=== PATIENT | male | born 1960 | race Caucasian/White ===

== ENCOUNTER → 2024-03-20 06:26 | Day surgery (SDC) | payer BC, SELFPAY | LOC: GI 06:26 | PROVIDERS: ATTENDING PHYSICIAN Internal Medicine | DX: R10.13 Epigastric pain (principal); R14.0 Abdominal distension (gaseous); K44.9 Diaphragmatic hernia without obstruction or gangrene; K20.90 Esophagitis, unspecified without bleeding; K22.89 Other specified disease of esophagus; K31.89 Other diseases of stomach and duodenum | CPT/HCPCS: 43239; 88305; 88342 ==

== ENCOUNTER → 2024-04-22 10:22 | Outpatient (REF) | payer BC, SELFPAY | LOC: RAD 10:22 | PROVIDERS: ATTENDING PHYSICIAN Internal Medicine | DX: J98.8 Other specified respiratory disorders (principal) | CPT/HCPCS: 71046 ==

== ENCOUNTER → 2024-05-06 07:28 | Outpatient (REF) | payer BC, SELFPAY | LOC: RAD 07:28 | PROVIDERS: ATTENDING PHYSICIAN Internal Medicine | DX: J18.9 Pneumonia, unspecified organism (principal) | CPT/HCPCS: 71046 ==

== ENCOUNTER → 2024-05-21 14:01 | Outpatient (REF) | payer BC, SELFPAY | LOC: RAD 14:01 | PROVIDERS: ATTENDING PHYSICIAN Internal Medicine | DX: R05.3 Chronic cough (principal) | CPT/HCPCS: 71046 ==

== ENCOUNTER → 2024-08-06 12:29 | Outpatient (REF) | payer BC, SELFPAY | LOC: RAD 12:29 | PROVIDERS: ATTENDING PHYSICIAN Nurse Practitioner Family; FAMILY PHYSICIAN Internal Medicine | DX: J06.9 Acute upper respiratory infection, unspecified (principal) | CPT/HCPCS: 71046 ==

== ENCOUNTER 2024-08-10 18:57 | Inpatient (IN) | payer BC, SELFPAY ==
[2024-08-10] VITALS (7 sets, daily range): BP systolic 109–136; BP diastolic 59–74; BMI 28.9; BMI 28.2
[2024-08-10] MEDS: TYLENOL 1000 MG PO (16:18)
--- NOTE | 2024-08-10 16:24 | ED.GENMED ---
History of Present Illness
General
Chief Complaint: Cough
Source: patient and spouse
Exam Limitations: none
Time Seen by Provider: 08/10/24 15:13
Nursing documentation reviewed up to this point in time: agreed with
History of Present Illness
History of Present Illness:
Patient is a 64-year-old male presenting to the emergency department with persistent cough and low-grade fever. Patient states that he has had a somewhat chronic cough over the past 6 months since an endoscopy procedure. However�over the past few
days cough has become productive with yellow/green sputum and he had a low-grade temp of 100.1 F yesterday. Patient states that he does have some pain in his chest when he is coughing only. No exertional or pleuritic component to pain
Patient denies any hemoptysis, shortness of breath, back pain. Patient denies any recent travel or recent surgeries. No lower leg pain or swelling. No personal or family history of blood clots.
Patient has seen his primary and ENT since initial onset of cough. It was thought to have been a component of GERD. He did also have an episode of pneumonia back in April.
Review of Systems
Review of Systems
Allergies reviewed?: Yes
All Other Systems: ROS reviewed and negative except as documented in HPI and ROS
Phy Exam
Physical Exam
Physical Exam:
Vitals: Hypoxic with oxygen saturation 88 on room air. Temp of 100.7 F. Otherwise vital signs stable.
General: Patient is coughing frequently.
Skin: Warm and dry, no rashes or lesions
Head: Normocephalic, atraumatic
Eyes: Sclera nonicteric. EOMs intact. No nystagmus.
Throat: Protecting airway
Neck: Normal ROM, no cervical spine tenderness, no meningismus. No JVD
Cardiac: Regular rate and rhythm, no murmurs.
Pulm: O2 saturation 88 on room air. Frequent coughing. Scattered rhonchi.
Abdomen: Abdomen soft. No abdominal tenderness.
Extremities: No evidence of cyanosis or edema. Palpable distal pulses
Neuro: AAOx3. Grossly intact.
Psychiatric: Normal affect.
Course
Orders/Labs/Results
Orders:
Orders
08/10/24 15:44
CR Chest - 2 Views Urgent
Comment:
Reason For Exam: productive cough, fever, hypoxia
08/10/24 16:15
Acetaminophen [Tylenol] 1,000 mg PO NOW STA
08/10/24 16:24
COVID-19 Antigen Urgent
Source: Nasal Swab
Complete Blood Count/With Diff Urgent
Comprehensive Metabolic Panel Urgent
Magnesium Urgent
Comment: ADD ON
Phosphorus Urgent
Comment: ADD ON
Influenza A+B Rapid Molecular Urgent
[place] Source: Nasal Swab
Specimen Description:
08/10/24 16:25
Respiratory Syncytial Virus Urgent
[place] Source: Nasal Swab
Specimen Description:
Date Specimen was Collected: 08/10/24
Time Specimen was Collected: 16:24
08/10/24 16:40
Azithromycin 500 mg/250 ml [Zithromax Infusion] 500 mg in 250 ml IV NOW
CefTRIAXone [Rocephin] 1,000 mg IV NOW STA
08/10/24 18:22
Lactate Level [Lactic Acid] Urgent
08/10/24 18:24
Add On- LAB Routine
Tests Added?: magnesium, phosphorous
0.9% Sodium Chloride 500 ml [Nss] 500 ml IV BOLUS
08/10/24 18:25
Admit/Transfer Patient As Directed
Co-Sign Provider:
Level of Care: Inpatient admission
Assign to:: Telemetry
Physician / Group: Yari Mack
Diagnosis: community acquired pneumonia
Reason for Telemetry: Chest Pain syndromes
Date to Stop Telemetry: 08/12/24
Time to Stop Telemetry: 11:00
Reason for Hospitalization: sepsis 2/2 community acquired pneumonia
Expected length of stay greater than two midnights?: Yes
ELOS- Estimated Length of Stay in days: 3
I certify the patient meets the requirements for IP care: Yes
PRN Pain Medication Management As Directed
May give lesser potent ordered pain med per pt: Yes
preference::
Protocol:: Medication orders for pain may be administered in a
manner that supports deferring to patient preference
when the pt is:
- Requesting an ordered lesser potent pain medication.
Least to most potent pain medications are defined
as: acetaminophen < NSAID < tramadol < opioids
(morphine, oxycodone, hydromorphone).
- Requesting a lesser dose of the same medication IF
ORDERED.
- Requesting a less intrusive route of administration
if both routes are prescribed by the provider (PO <
IV).
08/10/24 18:28
Code Status As Directed
Resuscitation Status: Full Code
08/10/24 18:[address] Non Medication Order As Directed
Physician Order: please TT me when lactate results (or TT overnight provider if after 7PM). If > 2 will need
to trend. He is already ordered for bolus now.
08/12/24 11:00
DC Protocol for Telemetry ONCE
Abnormal Lab Results
08/10/24
16:24
WBC 12.0 H 10^3/uL
(4.8-10.8)
MCV 95.0 H fL
(80.0-94.0)
MCH 31.1 H pg
(27.0-31.0)
MCHC 32.7 L g/dL
(33.0-37.0)
Absolute Neuts (auto) 8.4 H 10^3/uL
(1.4-6.5)
Absolute Monos (auto) 1.0 H 10^3/uL
(0.1-0.6)
Lymphocytes % 20.4 L %
(20.5-51.1)
Carbon Dioxide 20 L mmol/L
(22-30)
08/10/24 16:24
08/10/24 16:24
Vital Signs
Temp: 100.7 F
Initial and Last Documented VS:
Initial Vital Signs
Temp Pulse Resp BP Pulse Ox
97.6 F 73 20 109/65 92
08/10/24 14:05 08/10/24 14:05 08/10/24 14:05 08/10/24 14:05 08/10/24 14:05
Last Documented Vital Signs
Temp Pulse Resp BP Pulse Ox
100.7 F H 85 26 122/64 93
08/10/24 16:32 08/10/24 18:45 08/10/24 18:45 08/10/24 18:30 08/10/24 18:45
MDM/Problems Addressed
Differential Diagnosis Includes:
Not limited to: Pneumonia, bronchitis, pulmonary embolism, GERD, COPD, asthma, etc.
MDM/Problems Addressed:
64-year-old male presenting with acute on chronic cough with productive sputum and low-grade fever worsening over the past few days. No shortness of breath. No hemoptysis. 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 Patient found to
be hypoxic on arrival to emergency department with oxygen saturation of 88 on room air. He was placed on 3 L nasal cannula and saturating in mid 90s. Afebrile in triage although by my assessment he did have a temp of 100.7 F. Otherwise his vital
signs are stable. Physical exam as above. Patient is coughing frequently with scattered rhonchi on lung auscultation. There is no wheezing. Heart regular rate and rhythm. Patient is perfusing well with palpable distal pulses. Given fever and
productive cough�high suspicion for infectious etiology including pneumonia, bronchitis. Other considerations include pulmonary embolism, COPD, etc. Will obtain basic labs, chest x-ray, viral swabs. Tylenol for fever.
Chronic conditions affecting care:
GERD, history of smoking
Acute Exacerbation and/or Progression of Chronic Illness:
N/A
*Radiology
Radiology exam reviewed: preliminary read by ED provider (Right lower lobe pneumonia) and radiology read reviewed (Right basilar pneumonia)
*Pulse Oximetry
Patient hypoxic: yes (88 on room air-placed on 4 L nasal)
*EKG
Interpreted by ED Provider?: NA
*Adjunct Spanish Instructor Interpretation
Rate: normal
Interpretation: normal
Heart Rate: 80
Rhythm: sinus
*Critical Care Note
Total Time (30-74mins, 75-104mins- exclusive of procedures): Not Applicable
Patient Management
Discussion with other providers: Hospitalist
Escalation/DeEscalation of care consider admission/obs:
Admit for oxygen supplementation and IV antibiotic
Update Note
Update Note:
Update: Labs reviewed. Mild leukocytosis of 12. Chemistry unremarkable. Viral swabs including COVID, influenza, and RSV are negative. Chest x-ray does show right lower lobe opacity consistent with pneumonia. Given patient's hypoxia and
supplemental oxygen requirement along with community-acquired pneumonia�will admit for IV antibiotics, supportive care. Patient started on IV Rocephin/azithromycin in emergency department. Patient accepted to hospitalist service in stable
condition.
ED Attending Note
-
Portions of this chart may have been created with voice recognition software.� Occasional wrong word or��sound alike� substitutions may have occurred due to the inherent limitations of voice recognition software.
Discharge Plan
Departure
Patient Disposition: Admit
Date of Disposition: 08/10/24
Time of Disposition: 17:01
Presentation/result/management discussed w/ accepting MD/DO: Hospitalist
Discharge Problem:
Community acquired pneumonia of right lower lobe of lung, Hypoxemia requiring supplemental oxygen
Prescriptions:
No Action
Amlodipine Besylate 5 mg
5 mg PO DAILY
Rx Instructions:
in PM
gabapentin 600 mg Tablet
600 mg PO DAILY
Rx Instructions:
in AM
clopidogrel 75 mg Tablet
75 mg PO DAILY
Rx Instructions:
in PM
pantoprazole 40 mg Tablet,Delayed Release (Dr/Ec)
40 mg PO DAILY
Rx Instructions:
in AM
rosuvastatin 10 mg Tablet
10 mg PO DAILY
Rx Instructions:
IN am
levothyroxine 125 mcg
125 mcg PO DAILY
Rx Instructions:
in AM
Referrals:
Fercho Adams I., DO [Family Provider] -
Discharge Date and Time
Print Language: LATVIAN
[2024-08-10 16:37] LABS: % Basophils 0.3 % (0-2); % Eosinophils 0.7 % (0-6); % Immature Granulocytes 0.3 % (0-0.5); % Lymphocytes 20.4 % (20.5-51.1); % Monocytes 8.3 % (1.7-9.3); Absolute Eosinophils 0.1 10^3/uL (0-0.7); Absolute Lymphocytes 2.5 10^3/uL (1.2-3.4); Absolute Neutrophils 8.4 10^3/uL (1.4-6.5); Hemoglobin 16.7 g/dL (13.0-18.0); Mean Corp Hgb Conc. 32.7 g/dL (33.0-37.0); Mean Corpuscular Hgb 31.1 pg (27.0-31.0); Mean Platelet Volume 9.2 fL (7.4-10.4); Nucleated Red Blood Cells % 0 % (-); Platelet Count 268 10^3/uL (130-400); Red Blood Cell Count 5.37 10^6/uL (4.70-6.10); Red Cell Dist. Width 12.3 % (11.5-14.5)
[2024-08-10 16:50] LABS: ALT (SGPT) 19 U/L (0-50); AST (SGOT) 28 U/L (17-59); Albumin 4.8 g/dl (3.5-5.0); Alkaline Phosphatase 58 U/L (38-126); Blood Urea Nitrogen 13 mg/dl (9-20); Calcium 9.4 mg/dl (8.4-10.2); Carbon Dioxide 20 mmol/L (22-30); Chloride 103 mmol/L (98-107); Estimated Creatinine Clearance 99 ml/min; Glucose 88 mg/dl (70-99); Potassium 4.4 mmol/L (3.5-5.1); Sodium 138 mmol/L (135-145); Total Protein 7.4 g/dl (6.3-8.2); eGFR > 60.00
[2024-08-10 16:55] LABS: COVID-19 Antigen Negative (Negative)
[2024-08-10] MEDS: ROCEPHIN 1000 MG IV (16:55)
[2024-08-10] MEDS: ZITHROMAX INFUSION 250 IV (16:55)
--- NOTE | 2024-08-10 17:55 | HPS.HSE ---
Addendum entered and electronically signed by Yari Mack MD 08/10/24 18:38:
Daily Alcohol Use
-educated on cessation oleg with frequent infections
-[facility] protocol ordered
Original Note:
Family Physician
-
Family Physician: Fercho Adams
Chief Complaint
-
cough and fever
History of Present Illness
Mr. John Jacome is a 64 yo man with hx GERD, HTN, current tobacco use (5-6 cigarettes/day), daily alcohol use presents to the ER with cough and fever.
He reports a chronic cough since March that is reported with a gag reflex. Last week his cough got worse and so he went to his PCP on Sunday and had an x-ray outpatient that was normal. He was prescribed cough medication. Over past two days he
started to develop fever at home and worsening cough and fatigue. No nausea or abdominal pain. No LE swelling. No new rash. No chest pain.
In March patient was diagnosed with pneumonia and had two rounds of antibiotics and one round of steroids. His pneumonia resolved but cough persisted. He tried Flonase for 2 days without relief and then stopped. He has not yet seen a
[employer].
Medical History
Past Medical History
Past Medical History: Reports GERD and HTN
Past Surgical History: Reports Other (hernia repair)
Social History
Tobacco: Smoker (5-6 cigarettes/day)
Alcohol: Daily (2-3 drinks/day)
Family History
Family History: Not pertinent
Allergies / Home Medications
Allergies reflects when Allergies were last updated in [employer].
Home Medications with original date entered in [employer]
Allergy/Medication List:
Allergies
Allergy/AdvReac Type Severity Reaction Status Date / Time
No Known Allergies Allergy Verified 08/10/24 14:12
Home Medications
Amlodipine Besylate 5 mg PO DAILY 08/10/24
clopidogrel 75 mg tablet 75 mg PO DAILY 08/10/24
gabapentin 600 mg tablet 600 mg PO DAILY 08/10/24
levothyroxine 125 mcg PO DAILY 08/10/24
pantoprazole 40 mg tablet,delayed release 40 mg PO DAILY 08/10/24
rosuvastatin 10 mg tablet 10 mg PO DAILY 08/10/24
Review of Systems
-
History Source: Patient
A 12 point ROS was completed and negative except as noted: Yes
Physical Exam
Vital Signs
Vital Signs
Temp Pulse Resp BP Pulse Ox
100.7 F H 94 25 136/74 91
08/10/24 16:32 08/10/24 17:16 08/10/24 17:16 08/10/24 16:00 08/10/24 17:16
Physical Exam
General: No Apparent Distress
HEENT: PERRLA
Respiratory: Other (cough on inspiration, no wheezing )
Cardiac: S1/S2 and Regular Rhythm
GI: Soft and Non Tender
Musculoskeletal: No Edema
Skin: Warm and Dry; No Rash
Neuro: AO x 3
Psych: Calm
Laboratory Results
-
08/10/24 16:24
08/10/24 16:24
Laboratory Results
Total Bilirubin 1.0 mg/dl (0.2-1.3) 08/10/24 16:24
AST 28 U/L (17-59) 08/10/24 16:24
ALT 19 U/L (0-50) 08/10/24 16:24
Alkaline Phosphatase 58 U/L (38-126) 08/10/24 16:24
Data Reviewed
-
Diagnostic Radiology: Report Reviewed by me
Lab Data: Labs Reviewed by me
Impression/Plan
-
Mr. John Jacome is a 64 yo man with hx GERD, HTN presents to the ER with cough and fever found to have CAP.
Triage VS: T 97.6 up to 100.7, P 73, RR 20, BP 109/65, SpO2 92%
LABS: WBC 12, Hg 16.7, PLT 268, Na 138, K+ 4.4, Cl 103, CO2 20, BUN 13, Cr 0.8, Glucose 88, T. Bili 1.0, AST 28, ALT 19, Alk Phos 58
Covid negative, Flu negative, RSV negative
CXR
IMPRESSION:
Right basilar pneumonia, new from prior.
Sepsis 2/2 Community Acquired Pneumonia
Acute Hypoxic Resp Insufficiency 2/2 Above - patient on 2L
-obtain lactate now
-admit to tele - can DC tele tomorrow based on O2 needs
-continue IV Ceftriaxone/Azithromycin
-IVF 1L
-no current wheezing on exam, frequent cough - start Duonebs standing and PRN
-Acapella, Mucinex
Daily Tobacco Use
-educated on cessation, denied need for nicotine patch
GERD
-daily Protonix
Chronic cough
-educated on tobacco cessation; may also be postnasal drip - encouraged to retry Flonase
Essential Hypertension
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
Hypothyroidism
-ENTRY LEVEL ADMINISTRATIVE ASSISTANT Synthroid
Hyperlipidemia
-Rosuvastatin
DVT PPx Lovenox
FULL CODE
[2024-08-10] MEDS: NSS 500 IV (18:29)
[2024-08-10 18:34] LABS: Magnesium 1.8 mg/dl (1.6-2.3); Phosphorus 3.4 mg/dl (2.5-4.5)
[2024-08-10 18:40] LABS: Lactic Acid 0.7 mmol/L (0.7-2.0)
[2024-08-10] MEDS: TYLENOL 650 MG PO (19:31)
[2024-08-10] MEDS: DUONEB 3 ML INH (21:22)
[2024-08-10] MEDS: NSS 1000 IV (22:14)
[2024-08-10] MEDS: MUCINEX 600 MG PO (22:15)
[2024-08-10] MEDS: PLAVIX 75 MG PO (22:17)
[2024-08-10] MEDS: THIAMINE INJECTION 200 MG IV (22:17)
[2024-08-10] MEDS: LOVENOX 40 MG SC (22:18)
[2024-08-10] MEDS: ULTRAM 25 MG PO (22:55)
[2024-08-11] MEDS: NAPROSYN 250 MG PO ×2 (01:27→18:24)
[2024-08-11 03:55] VITALS: BP 110/59
[2024-08-11] MEDS: SYNTHROID 125 MCG PO (06:12)
[2024-08-11] MEDS: DUONEB 3 ML INH ×4 (07:31→21:10)
[2024-08-11 07:35] VITALS: BP 113/56
[2024-08-11 08:25] LABS: % Basophils 0.2 % (0-2); % Eosinophils 0.5 % (0-6); % Immature Granulocytes 0.4 % (0-0.5); % Lymphocytes 16.7 % (20.5-51.1); % Monocytes 11.1 % (1.7-9.3); % Neutrophils 71.1 % (42.2-75.2); Absolute Eosinophils 0.1 10^3/uL (0-0.7); Absolute Lymphocytes 1.9 10^3/uL (1.2-3.4); Absolute Monocytes 1.2 10^3/uL (0.1-0.6); Absolute Neutrophils 7.9 10^3/uL (1.4-6.5); Hematocrit 41.8 % (39.0-52.0); Hemoglobin 14.1 g/dL (13.0-18.0); Mean Corp Hgb Conc. 33.7 g/dL (33.0-37.0); Mean Corpuscular Volume 94.8 fL (80.0-94.0); Mean Platelet Volume 9.8 fL (7.4-10.4); Nucleated Red Blood Cells % 0 % (-); Platelet Count 210 10^3/uL (130-400); Red Blood Cell Count 4.41 10^6/uL (4.70-6.10); Red Cell Dist. Width 12.2 % (11.5-14.5); White Blood Cell Count 11.2 10^3/uL (4.8-10.8)
[2024-08-11 08:57] LABS: Blood Urea Nitrogen 11 mg/dl (9-20); Calcium 8.2 mg/dl (8.4-10.2); Carbon Dioxide 22 mmol/L (22-30); Chloride 105 mmol/L (98-107); Estimated Creatinine Clearance 114 ml/min; Glucose 92 mg/dl (70-99); Magnesium 1.7 mg/dl (1.6-2.3); Potassium 3.9 mmol/L (3.5-5.1); Sodium 137 mmol/L (135-145); eGFR > 60.00
[2024-08-11] MEDS: NEURONTIN 600 MG PO (09:54)
[2024-08-11] MEDS: FLUSH (NSS) 1 FLUSH IV (09:55)
[2024-08-11] MEDS: MUCINEX 600 MG PO ×2 (09:55→19:38)
[2024-08-11] MEDS: THIAMINE INJECTION 200 MG IV ×2 (09:55→19:38)
[2024-08-11] MEDS: PROTONIX 40 MG PO (09:55)
[2024-08-11] MEDS: CRESTOR 10 MG PO (09:55)
[2024-08-11] MEDS: FOLVITE 1 MG PO (09:55)
[2024-08-11 11:31] VITALS: BP 109/64
--- NOTE | 2024-08-11 12:27 | W.PN.HOSP.TC ---
Today's Communication/Plan
-
IV abx
sputum sample
Bronchodilators
wean o2 as tolerated
Assessment / Plan
Assessment / Plan
Sepsis 2/2 Community Acquired Pneumonia-poa
Acute Hypoxic Resp failre 2/2 Above
-lactic acid wnl. Require as high as 5L-improving to 3L .
-continue IV Ceftriaxone/Azithromycin
-IVF 1L -DC IVF.
-start Duonebs standing and PRN
-Acapella, Mucinex
-If no improvement will need to consider CT chest
Daily Tobacco Use
-educated on cessation, denied need for nicotine patch
Daily Alcohol Use
-educated on cessation oleg with frequent infections
-[facility] protocol ordered
GERD
-daily Protonix
Chronic cough
-educated on tobacco cessation; may also be postnasal drip - encouraged to retry Flonase
Essential Hypertension
-MILL[employer] FIRST Amlodipine
Hypothyroidism
-MILL[employer] Synthroid
Hyperlipidemia
-Rosuvastatin
DVT PPx Lovenox
FULL CODE
Anticipated Discharge: 24 - 48 hours
Subjective/Interval History
-
Date of Service: August 11, 2024
Remains on oxygen
states improvement in breathing
smokes CIGAR daily
Objective Data
-
Labs:
Laboratory Results
08/11/24
07:22
WBC 11.2 H
Hgb 14.1
Hct 41.8
Plt Count 210 D
Sodium 137
Potassium 3.9
Chloride 105
Carbon Dioxide 22
BUN 11
Creatinine 0.7
Glucose 92
Calcium 8.2 L
Vital Signs:
Vital Signs
Temp Pulse Resp BP Pulse Ox
98.3 F 62 18 109/64 95
08/11/24 11:31 08/11/24 11:31 08/11/24 11:31 08/11/24 11:31 08/11/24 11:31
I&O
08/10/24 08/11/24 08/12/24
06:59 06:59 06:59
Intake Total 240 / 240
Output Total 600 / 600
Balance -360 / -360
Physical Exam
-
General: Well Developed and No Apparent Distress
HEENT: Normocephalic, Atraumatic, Moist Mucous Membranes and Oxygen
Respiratory: Wheezes
Cardiac: Regular Rhythm and S1/S2; Negative Murmur, Rub or Gallop
GI: Soft, Nontender, Nondistended and Normal Bowel Sounds; Negative Organomegaly
Rectal: Deferred by Provider
Musculoskeletal: No Clubbing, No Cyanosis and No Edema
Skin: Warm; Negative Rash
Neuro: Awake, Alert, Oriented, AO x 3 and Nonfocal/Grossly Intact
Psych: Calm
Data Reviewed
-
Total Time Spent with Patient (in minutes): 55
--- NOTE | 2024-08-11 13:55 | CM ---
JANAK met with John at bedside to complete IA. He lives with his in a split level home with 5 entry steps, 8 steps to the second level. 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
Plan: Discharge to home with no needs.
PCP: Dr. Milan
Pharmacy: [facility] [place]
[2024-08-11 15:20] VITALS: BP 109/64
--- NOTE | 2024-08-11 16:35 | PTCARENOTE ---
Pt AAO x3, TAYLOR well, ambulatory in room/to BR; rachel well. VSS. Telemetry:NSR. On nc 2 lpm- pulse ox 96%, pt with (+) slight PORTILLO; denies SOB; has occ loose, productive cough. Abd soft, rounded, rachel PO well. Voiding in BR without difficulty.
Resting in bed at present. Will continue to monitor.
[2024-08-11] MEDS: STERILE WATER FOR INJECTION 10 ML IV (16:45)
[2024-08-11] MEDS: ROCEPHIN 1000 MG IV (16:45)
[2024-08-11] MEDS: ZITHROMAX 500 MG PO (16:45)
[2024-08-11] MEDS: LOVENOX 40 MG SC (17:39)
[2024-08-11] MEDS: NORVASC 5 MG PO (17:41)
[2024-08-11] MEDS: PLAVIX 75 MG PO (17:43)
[2024-08-11] MEDS: TYLENOL 650 MG PO (17:55)
[2024-08-11 19:55] VITALS: BP 118/55
[2024-08-11 23:55] VITALS: BP 112/57
[2024-08-12 03:26] VITALS: BP 116/66
[2024-08-12] MEDS: SYNTHROID 125 MCG PO (06:15)
[2024-08-12] MEDS: DUONEB 3 ML INH ×4 (07:08→20:43)
[2024-08-12 07:50] VITALS: BP 119/70
[2024-08-12 08:12] LABS: % Basophils 0.3 % (0-2); % Eosinophils 2.3 % (0-6); % Immature Granulocytes 0.3 % (0-0.5); % Lymphocytes 22.2 % (20.5-51.1); % Neutrophils 62.9 % (42.2-75.2); Absolute Eosinophils 0.2 10^3/uL (0-0.7); Absolute Monocytes 1.1 10^3/uL (0.1-0.6); Absolute Neutrophils 5.6 10^3/uL (1.4-6.5); Hematocrit 43.3 % (39.0-52.0); Hemoglobin 14.5 g/dL (13.0-18.0); Mean Corp Hgb Conc. 33.5 g/dL (33.0-37.0); Mean Corpuscular Hgb 31.7 pg (27.0-31.0); Mean Corpuscular Volume 94.7 fL (80.0-94.0); Mean Platelet Volume 9.8 fL (7.4-10.4); Nucleated Red Blood Cells % 0 % (-); Platelet Count 262 10^3/uL (130-400); Red Blood Cell Count 4.57 10^6/uL (4.70-6.10); Red Cell Dist. Width 12.1 % (11.5-14.5)
[2024-08-12] MEDS: FOLVITE 1 MG PO (08:42)
[2024-08-12] MEDS: MUCINEX 600 MG PO ×2 (08:42→20:33)
[2024-08-12] MEDS: PROTONIX 40 MG PO (08:42)
[2024-08-12] MEDS: NEURONTIN 600 MG PO (08:42)
[2024-08-12] MEDS: CRESTOR 10 MG PO (08:42)
[2024-08-12] MEDS: THIAMINE INJECTION 200 MG IV ×2 (08:43→20:33)
[2024-08-12 08:45] LABS: Blood Urea Nitrogen 12 mg/dl (9-20); Calcium 8.5 mg/dl (8.4-10.2); Carbon Dioxide 24 mmol/L (22-30); Chloride 107 mmol/L (98-107); Estimated Creatinine Clearance 99 ml/min; Glucose 92 mg/dl (70-99); Potassium 4.1 mmol/L (3.5-5.1); Sodium 141 mmol/L (135-145); eGFR > 60.00
--- NOTE | 2024-08-12 09:17 | CON.PUL ---
Consultation
Consultation Request
Date/Time Consultation Requested: 08/12/24
Date/Time Consultation Performed: 08/12/24
Performing Provider: Louis
Reason for Consultation: PNA
Medical History
-
History of Present Illness:
Patient is a 64 year old M with hx GERD, HTN, current tobacco use (5-6 cigarettes/day), daily alcohol use presents to the ER with cough and fever. Cough, dry and chronic ongoing since March, worsening in the past week. In March patient was
diagnosed with pneumonia and had two rounds of antibiotics and one round of steroids. His pneumonia resolved but cough persisted. OP CXR reportedly normal. Over past two days he started to develop fever at home and worsening cough and fatigue.
Of note, he did undergo EGD on 03/20/24 with esophagitis. He feels his symptoms started within 24 hours of procedure.
In ER, was noted to have mild hypoxemia, O2 raven 89% placed on 2L NC. Tmax 100.7F on arrival. CXR showing R basilar infiltrate, new compared to prior films.
He was told in the past to see pulmonary but did not follow up.
Current smoker, up to 1/2-1PPD for 'most of his life >40 years' cut back to 5-6 cigs/day. No family history of lung disease.
Past Medical History
Past Medical History: Other (see list below)
Social History
Tobacco: Smoker
Alcohol: Daily
Drug: None
Family History
Family History: Reviewed & Not Pertinent
Allergies / Home Medications
Allergies
Allergy/AdvReac Type Severity Reaction Status Date / Time
No Known Allergies Allergy Verified 08/10/24 14:12
Home Medications
�Medication �Instructions �Recorded �Confirmed �Last Taken �Type
Amlodipine Besylate 5 mg PO QPM Blood Pressure 08/10/24 08/10/24 Unknown History
clopidogrel 75 mg tablet 75 mg PO QPM Blood Clot 08/10/24 08/10/24 Unknown History
Prevention/Tx
gabapentin 600 mg tablet 600 mg PO DAILY Pain 08/10/24 08/10/24 08/10/24 History
levothyroxine 125 mcg PO DAILY Thyroid 08/10/24 08/10/24 08/10/24 History
pantoprazole 40 mg tablet,delayed 40 mg PO DAILY Gastrointestinal 08/10/24 08/10/24 08/10/24 History
release Issue
rosuvastatin 10 mg tablet 10 mg PO DAILY High Cholesterol 08/10/24 08/10/24 08/10/24 History
Review of Systems
-
History Source: Patient
All other systems: Negative unless noted
Vitals / Labs / Diagnostic Testing
Vital Signs
Temp Pulse Resp BP Pulse Ox
98 F 66 20 119/70 96
08/12/24 07:50 08/12/24 07:50 08/12/24 07:50 08/12/24 07:50 08/12/24 07:50
Lab Data
08/12/24 07:26
08/12/24 07:26
Microbiology
08/11/24 09:50 Sputum Respiratory Culture - Final
08/11/24 09:50 Sputum Gram Stain - Final
08/10/24 16:24 Nasal Swab Influenza Types A & B (GELY) - Final
Negative for Influenza A & B, NAAT
Negative results must be combined with clinical observations
and patient history.
Nucleic Acid Amplification test (NAAT)performed on the
cuaQea platform.
08/10/24 16:25 Nasal Swab Respiratory Syncytial Virus Culture - Final
Negative for Respiratory Syncytial Virus.
A false negative result may be obtained with a specimen
collected early in the acute phase. If symptoms persist, a
new specimen should be tested.
Diagnostic Testing:
Physical Exam
-
HEENT: Normocephalic, Anicteric and Moist Mucous Membranes
Cardiovascular: S1/S2 and Regular Rhythm
Respiratory: Clear and Non-Labored Respirations
GI: Soft, Non Distended and Non Tender
Neurology: Awake, Alert, Oriented and No Motor Deficits
Skin: Warm, Dry and Good Color
General: Comfortable and Other (NAD)
Assessment
-
Patient is a 64 year old M with hx GERD, HTN, current tobacco use (5-6 cigarettes/day), daily alcohol use presents to the ER with cough and fever. Cough, dry and chronic ongoing since March, worsening in the past week. In March patient was
diagnosed with pneumonia and had two rounds of antibiotics and one round of steroids. His pneumonia resolved but cough persisted. OP CXR reportedly normal. Over past two days he started to develop fever at home and worsening cough and fatigue.
Of note, he did undergo EGD on 03/20/24 with esophagitis. In ER, was noted to have mild hypoxemia, O2 raven 89% placed on 2L NC. Tmax 100.7F on arrival. CXR showing R basilar infiltrate, new compared to prior films. We are consulted for eval
08/12/24.
Acute hypoxic respiratory insufficiency
R basilar infiltrate, likely CAP PNA vs aspiration
Progressive chronic cough complaints, since March
Leukocytosis, mild
Current smoker, 1/-1/2 PPD
Chronic ETOH use, daily
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
Dyspepsia s/p EGD 03/20/24-1 cm hiatal hernia. LA Grade A esophagitis with no bleeding. Erythematous mucosa in the gastric body and antrum.
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
History of colon polyps
Chronic ETOH abuse, 2 glasses of wine/daily
Overweight, BMI 28
Hernia repairs 2009, 2004
BPH
PVD s/p stent on Eliquis/ASA/Plavix
DJD
Chronic pain/migraines
HLD
Plan
Hypoxemia noted on arrival, O2 raven 89% placed on 2L NC
No oxygen use is noted at baseline at home
Home O2 evaluation, eventually
No prior history of lung disease is noted -- never had PFTs or symptoms prior to this
Current smoker, up to 1/2-1PPD for 'most of his life >40 years' cut back to 5-6 cigs/day.
No family history of lung disease. Never had LDCT screening
At risk for COPD, we discussed this today
Suspect patient has RLL PNA CAP vs Asp given recent procedure
He notes that he had colonoscopy year prior and did not have issues with anesthesia then
CXR obtained indicating consolidation which is new
Will obtain dedicated CT chest to evaluate for any other lung disease, never had screening
Will also obtain baseline PFT testing
Agree with IV abx, sputum culture prelim contaminated
Will repeat culture
We have discussed need for diag bronch if symptoms are not improving
No cardiac disease history, HTN meds on board
No prior ECHO available for review, can obtain baseline if hypoxemia not improving
Smoking history noted
Smoking cessation discussed, he has declined NRT
Will need outpatient pulmonary evaluation in our office for PFTs and 6MWT
Reviewed with patient and at bedside
Risk factors assessed for underlying sleep disordered breathing also noted, recommend outpatient PSG/sleep evaluation
We will follow
Diagnostic Data
Chest X-Ray: 08/10/24- Right basilar pneumonia, new from prior.
08/06/24-1. Clear lungs. 2. No significant change compared to prior study.
05/21/24- 1. Clear lungs. 2. Right lower lobe pneumonia seen on prior chest x-rays has resolved.
05/06/24- Stable probable mild right lower lobe infectious/inflammatory bronchiolitis.
04/22/24-There is airspace disease in the right lower lobe. This could be atelectasis versus pneumonia.
CT Scan:
Echo:
PFT's:
Reports and relevant images were personally reviewed.
Total time spent on this consultation __77__ includes review of history, physical exam, medications, laboratory data, personal review of imaging, extensive review of outpatient records, discussion with care team and respiratory therapy.
[2024-08-12 11:18] VITALS: BP 126/63
--- NOTE | 2024-08-12 12:07 | W.PN.HOSP.TC ---
Today's Communication/Plan
-
Continue with antibiotic
Wean O2 as tolerated
Continue with bronchodilators
CT chest
Pulm eval
Assessment / Plan
Assessment / Plan
Sepsis 2/2 Community Acquired Pneumonia-poa
Acute Hypoxic Resp failure 2/2 Above
-lactic acid wnl. Require as high as 5L-improving to 3L yesterday to 1L today.
-continue IV Ceftriaxone/Azithromycin
-IVF 1L -DC IVF.
-start Duonebs standing and PRN
-Acapella, Mucinex
-CT chest pending
-Pulm eval
Daily Tobacco Use
-educated on cessation, denied need for nicotine patch
Daily Alcohol Use
-educated on cessation oleg with frequent infections
-MSAS protocol ordered
GERD
-daily Protonix
Chronic cough
-educated on tobacco cessation; may also be postnasal drip - encouraged to retry Flonase
-Status post recent ENT evaluation and or endoscopy. ENT mention of silent reflux
-Pulm now also consulted.
Essential Hypertension
-DIRECTOR OF STRATEGY & MOBILE Amlodipine
Hypothyroidism
-DIRECTOR OF STRATEGY & MOBILE Synthroid
Hyperlipidemia
-Rosuvastatin
DVT PPx Lovenox
FULL CODE
d/w with spouse at bedside in details. All questions answered to her satisfaction.
Anticipated Discharge: Within 24 hours
Subjective/Interval History
-
Date of Service: August 12, 2024
states of dry cough
intermittent phelgm production
now on 1L oxygen
Objective Data
-
Labs:
Laboratory Results
08/12/24
07:26
WBC 9.0
Hgb 14.5
Hct 43.3
Plt Count 262 D
Sodium 141
Potassium 4.1
Chloride 107
Carbon Dioxide 24
BUN 12
Creatinine 0.8
Glucose 92
Calcium 8.5
Vital Signs:
Vital Signs
Temp Pulse Resp BP Pulse Ox
98.6 F 59 18 126/63 94
08/12/24 11:18 08/12/24 11:18 08/12/24 11:18 08/12/24 11:18 08/12/24 11:18
I&O
08/11/24 08/12/24 08/13/24
06:59 06:59 06:59
Intake Total 240 / 240 1750 / 1750
Output Total 600 / 600
Balance -360 / -360 1750 / 1750
Physical Exam
-
General: Well Developed and No Apparent Distress
HEENT: Normocephalic, Atraumatic, Moist Mucous Membranes and Oxygen
Respiratory: Decreased Breath Sounds (improving )
Cardiac: Regular Rhythm and S1/S2; Negative Murmur, Rub or Gallop
GI: Soft, Nontender, Nondistended and Normal Bowel Sounds; Negative Organomegaly
Rectal: Deferred by Provider
Musculoskeletal: No Clubbing, No Cyanosis and No Edema
Skin: Warm; Negative Rash
Neuro: Awake, Alert, Oriented, AO x 3 and Nonfocal/Grossly Intact
Psych: Calm
Data Reviewed
-
Total Time Spent with Patient (in minutes): 55
Labs: Labs Reviewed by me, Discussed with Patient and Discussed with Family
[2024-08-12] MEDS: ROCEPHIN 1000 MG IV (15:09)
[2024-08-12] MEDS: STERILE WATER FOR INJECTION 10 ML IV (15:10)
[2024-08-12] MEDS: ZITHROMAX 500 MG PO (15:10)
[2024-08-12 16:52] VITALS: BP 123/65
[2024-08-12] MEDS: PLAVIX 75 MG PO (17:30)
[2024-08-12] MEDS: NORVASC 5 MG PO (17:30)
[2024-08-12] MEDS: TYLENOL 650 MG PO ×2 (17:31→22:01)
[2024-08-12] MEDS: LOVENOX 40 MG SC (17:32)
[2024-08-12] MEDS: ROBITUSSIN AC 5 ML PO (18:39)
[2024-08-12 19:55] VITALS: BP 127/66
[2024-08-12 23:17] VITALS: BP 129/69
[2024-08-13 03:49] VITALS: BP 124/68
[2024-08-13] MEDS: ROBITUSSIN AC 5 ML PO ×2 (03:56→09:39)
[2024-08-13] MEDS: SYNTHROID 125 MCG PO (05:44)
[2024-08-13] MEDS: DUONEB 3 ML INH ×3 (07:16→15:08)
[2024-08-13 07:30] VITALS: BP 132/66
[2024-08-13] MEDS: PROTONIX 40 MG PO (08:43)
[2024-08-13] MEDS: MUCINEX 600 MG PO (08:43)
[2024-08-13] MEDS: CRESTOR 10 MG PO (08:43)
[2024-08-13] MEDS: FOLVITE 1 MG PO (08:43)
[2024-08-13] MEDS: NEURONTIN 600 MG PO (08:43)
[2024-08-13] MEDS: THIAMINE INJECTION 200 MG IV (08:44)
--- NOTE | 2024-08-13 09:40 | W.PN.PUL3 ---
Today's Communication / Plan
-
PFT reviewed, moderate COPD-will start inhalers to continue at discharge, COPD education
Home O2 eval
Smoking cessation, he has declined NRT
Continue abx for full course at home, sputum negative
BURT history, will be followed as OP
Ok for discharge planning today
We discussed his OP FU in significant detail
Assessment
-
Patient is a 64 year old M with hx GERD, HTN, current tobacco use (5-6 cigarettes/day), daily alcohol use presents to the ER with cough and fever. Cough, dry and chronic ongoing since March, worsening in the past week. In March patient was
diagnosed with pneumonia and had two rounds of antibiotics and one round of steroids. His pneumonia resolved but cough persisted. OP CXR reportedly normal. Over past two days he started to develop fever at home and worsening cough and fatigue.
Of note, he did undergo EGD on 03/20/24 with esophagitis. In ER, was noted to have mild hypoxemia, O2 raven 89% placed on 2L NC. Tmax 100.7F on arrival. CXR showing R basilar infiltrate, new compared to prior films. We are consulted for eval
08/12/24.
Acute hypoxic respiratory insufficiency
R basilar infiltrate, likely CAP PNA vs aspiration
Progressive chronic cough complaints, since March
Leukocytosis, mild
Current smoker, 1/4-1/2 PPD
Chronic ETOH use, daily
Moderate COPD
BURT not on CPAP
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
Dyspepsia s/p EGD 03/20/24-1 cm hiatal hernia. LA Grade A esophagitis with no bleeding. Erythematous mucosa in the gastric body and antrum.
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
History of colon polyps
Chronic ETOH abuse, 2 glasses of wine/daily
Overweight, BMI 28
Hernia repairs 2009, 2004
BPH
PVD s/p stent on Eliquis/ASA/Plavix
DJD
Chronic pain/migraines
HLD
Plan
Hypoxemia noted on arrival, O2 raven 89% placed on 2L NC
No oxygen use is noted at baseline at home
Home O2 evaluation
No prior history of lung disease is noted -- never had PFTs or symptoms prior to this
Current smoker, up to 1/2-1PPD for 'most of his life >40 years' cut back to 5-6 cigs/day.
No family history of lung disease. Never had LDCT screening
At risk for COPD, we discussed this today
Suspect patient has RLL PNA CAP vs Asp given recent procedure
He notes that he had colonoscopy year prior and did not have issues with anesthesia then
CXR obtained indicating consolidation which is new
Will obtain dedicated CT chest to evaluate for any other lung disease, never had screening
--CT showing normal lungs, PNA only, no other acute findings
Baseline PFT testing showing moderate obstruction c/w COPD
Will start symbicort/spiriva to take at home, continue
COPD education
This was reviewed with patient and
Agree with IV abx, sputum culture prelim contaminated
Will repeat culture--usual lu
Can complete PO course
No cardiac disease history, HTN meds on board
No prior ECHO available for review, can obtain baseline if hypoxemia not improving
Smoking history noted
Smoking cessation discussed, he has declined NRT
Will need outpatient pulmonary evaluation in our office for PFTs and 6MWT
Reviewed with patient and at bedside
Risk factors assessed for underlying sleep disordered breathing also noted, recommend outpatient PSG/sleep evaluation
He has had a sleep study and diagnosed with BURT, he has declined CPAP
We will review this at his OP visit
Discharge planning per team
Diagnostic Data
Chest X-Ray: 08/10/24- Right basilar pneumonia, new from prior.
08/06/24-1. Clear lungs. 2. No significant change compared to prior study.
05/21/24- 1. Clear lungs. 2. Right lower lobe pneumonia seen on prior chest x-rays has resolved.
05/06/24- Stable probable mild right lower lobe infectious/inflammatory bronchiolitis.
04/22/24-There is airspace disease in the right lower lobe. This could be atelectasis versus pneumonia.
CT Scan:
Echo:
PFT's:
Reports and relevant images were personally reviewed.
Total time spent on this encounter __54__ includes review of history, physical exam, medications, laboratory data, personal review of imaging, extensive review of outpatient records, discussion with care team and respiratory therapy.
Subjective Data
-
Date of Service:
Date of Service: August 13, 2024
Chief Complaint: Pulmonary Follow Up
Subjective:
Significantly better today, sitting in chair
Off O2, at bedside
Objective Data
Data Reviewed
Vital Signs / I&O / Oxygen:
Vital Signs
Temp Pulse Resp BP Pulse Ox
98.1 F 63 18 132/66 92
08/13/24 07:30 08/13/24 07:30 08/13/24 07:30 08/13/24 07:30 08/13/24 09:21
Intake and Output
08/12/24 08/13/24 08/14/24
06:59 06:59 06:59
Intake Total 1750 / 1750 1140 / 1140
Balance 1750 / 1750 1140 / 1140
SaO2 92
Nasal Cannula flow liters per 1
minute
Physical Exam
General: Comfortable and Other (NAD)
HEENT: Normocephalic, Anicteric and Moist Mucous Membranes
Cardiovascular: S1-S2 and Regular Rhythm
Respiratory: Crackles (minimal) and Non-Labored Respirations
GI: Soft, Non Distended and Non Tender
Neurology: Awake, Alert, Oriented and No Motor Deficits
Skin: Warm, Dry and Good Color
Labs/Micro/Reports
Lab Data
08/12/24 07:26
08/12/24 07:26
Microbiology
08/12/24 13:38 Sputum Gram Stain - Preliminary
08/11/24 09:50 Sputum Respiratory Culture - Final
08/11/24 09:50 Sputum Gram Stain - Final
08/10/24 16:24 Nasal Swab Influenza Types A & B (GELY) - Final
Negative for Influenza A & B, NAAT
Negative results must be combined with clinical observations
and patient history.
Nucleic Acid Amplification test (NAAT)performed on the
[employer] platform.
08/10/24 16:25 Nasal Swab Respiratory Syncytial Virus Culture - Final
Negative for Respiratory Syncytial Virus.
A false negative result may be obtained with a specimen
collected early in the acute phase. If symptoms persist, a
new specimen should be tested.
--- NOTE | 2024-08-13 11:20 | W.PN.HOSP.TC ---
Today's Communication/Plan
-
Pulmonary recs
Home O2 evaluation
P.o. antibiotics on discharge
Assessment / Plan
Assessment / Plan
Sepsis 2/2 Community Acquired Pneumonia-poa
Acute Hypoxic Resp failure 2/2 Above
-lactic acid wnl. Require as high as 5L-improving to 3L yesterday to 1L to room air. Home o2 eval ordered/pending
-continue IV Ceftriaxone/Azithromycin
-IVF 1L -DC IVF.
-start Duonebs standing and PRN
-Acapella, Mucinex
-CT chest resulted with right lower lobe opacification compatible with pneumonia. Mild left lower lobe opacification most likely represent subsegmental atelectasis. Pneumonia cannot be excluded. Few small scattered nonspecific subcentimeter
mediastinal lymph nodes. Will need to follow-up outpatient with pulmonary for mediastinal lymph nodes follow-up with repeat CAT scan most likely
-Pulm eval
Daily Tobacco Use
-educated on cessation, denied need for nicotine patch. High risk of developing COPD as with extensive history of smoking.
Daily Alcohol Use
-educated on cessation oleg with frequent infections
-MSAS protocol ordered and no withdrawal pack can be stopped.
GERD
-daily Protonix
Chronic cough
-educated on tobacco cessation; may also be postnasal drip - encouraged to retry Flonase
-Status post recent ENT evaluation and or endoscopy. ENT mention of silent reflux
-Pulm now also consulted.
Essential Hypertension
-REVERSER Amlodipine
Hypothyroidism
-REVERSER Synthroid
Hyperlipidemia
-Rosuvastatin
DVT PPx Lovenox
FULL CODE
d/w with spouse at bedside in details on 08/12 and 08/13 . All questions answered to her satisfaction.
Anticipated Discharge: Today
Subjective/Interval History
-
Date of Service: August 13, 2024
taken off o2 this am
remains with cough
tolerating diet
afebrile
Objective Data
-
Vital Signs:
Vital Signs
Temp Pulse Resp BP Pulse Ox
98.1 F 63 18 132/66 92
08/13/24 07:30 08/13/24 07:30 08/13/24 07:30 08/13/24 07:30 08/13/24 09:21
I&O
08/12/24 08/13/24 08/14/24
06:59 06:59 06:59
Intake Total 1750 / 1750 1140 / 1140
Balance 1750 / 1750 1140 / 1140
[2024-08-13 11:32] VITALS: BP 138/69
--- NOTE | 2024-08-13 13:31 | RESPNOTE ---
Respiratory: SpO2 on Room Air 93-94% HR 68. Patient walked 300 feet SpO2 91% HR 93. Tolerated well, patient states no SOB/PORTILLO.
[2024-08-13] MEDS: SPIRIVA RESPIMAT 2.5 MCG 2 PUFF INH (13:39)
[2024-08-13] MEDS: SYMBICORT 80/4.5 MCG INHALER 2 PUFF INH (13:39)
--- NOTE | 2024-08-13 14:04 | W.DCSUMMARY ---
Discharge Summary
Discharge Data
Date of Admission: 08/10/24
Date of Discharge: 08/13/24
-
Pending Results: No
Hospital Course
64-year-old male past medical history of daily tobacco abuse, daily alcohol usage, GERD, cough chronic, hypertension, hypothyroidism, hyperlipidemia, peripheral arterial disease status post stent left lower extremity is presenting from home with
severe cough and shortness of breath. Chest x-ray was performed with infiltrate. Patient was started on antibiotics. Patient was started on bronchodilators. Patient was eval by pulmonary and patient underwent CT chest. CT chest with
infiltration noted. Patient was also acute hypoxic respiratory insufficiency. Patient was able to be weaned off to room air. Patient did not qualify for home oxygenation. Patient O2 status remained stable. Patient underwent PFT which showed
patient with moderate COPD and patient was started on bronchodilators with Symbicort and Spiriva. Patient was recommended follow-up outpatient with pulmonary. Patient was recommended complete tobacco cessation and alcohol cessation.
Discharge Plan
-
Patient Disposition: Home (Routine Discharge)
Discharge Diagnosis/Procedures: Acute hypoxic respiratory insufficiency
Community-acquired pneumonia
Newly diagnosed COPD
Condition: Fair
Diet: As tolerated
Activity: As tolerated
Driving Restrictions: As prior to admission
Referrals:
Fercho Adams I. DO [Family Provider] - in less than 1 week
Mae Myers, [Active] - in three to four weeks (Had [employer] appt 09/29/24, can reschedule for hosp FU visit )
Prescriptions:
New
budesonide-formoterol [Symbicort] 80-4.5 mcg/actuation Hfa Aerosol Inhaler
2 puff inhalation R BID 30 Days Qty: 10.2 0RF
cefdinir 300 mg capsule
300 mg PO BID Qty: 6 0RF
azithromycin 500 mg tablet
500 mg PO DAILY 3 Days Qty: 3 0RF
Spiriva Respimat 2.5 mcg/actuation mist
2 inh inhalation DAILY 30 Days Qty: 4 0RF
Continued
Amlodipine Besylate 5 mg
5 mg PO QPM
Rx Instructions:
in PM
gabapentin 600 mg Tablet
600 mg PO DAILY
Rx Instructions:
in AM
clopidogrel 75 mg Tablet
75 mg PO QPM
Rx Instructions:
in PM
pantoprazole 40 mg Tablet,Delayed Release (Dr/Ec)
40 mg PO DAILY
Rx Instructions:
in AM
rosuvastatin 10 mg Tablet
10 mg PO DAILY
Rx Instructions:
IN am
levothyroxine 125 mcg
125 mcg PO DAILY
Rx Instructions:
in AM
Discharge Orders:
Discharge Patient (As Directed); Ordered 08/13/24
Ordered By: Anthony Bray
Discharge Date and Time
Discharge Date/Time: 08/13/24 15:48
Print Language: KITTITIAN
[2024-08-13 14:23] VITALS: BP 132/68
[2024-08-13] MEDS: STERILE WATER FOR INJECTION 10 ML IV (14:50)
[2024-08-13] MEDS: ZITHROMAX 500 MG PO (14:50)
[2024-08-13] MEDS: ROCEPHIN 1000 MG IV (14:50)
== END 2024-08-13 15:48 | disposition home or self-care (01) | DRG 871 ==
LOC: 4 EAST ACU 18:57
PROVIDERS: Physician Assistant; ADMITTING PHYSICIAN Student in an Organized Health Care Education/Training Program; ATTENDING PHYSICIAN Hospitalist; EMERGENCY PHYSICIAN Emergency Medicine; FAMILY PHYSICIAN Internal Medicine; OTHER PHYSICIAN Internal Medicine
DX: A41.9 Sepsis, unspecified organism (principal); J18.9 Pneumonia, unspecified organism; J96.01 Acute respiratory failure with hypoxia; J44.0 Chronic obstructive pulmonary disease with (acute) lower respiratory infection; I10 Essential (primary) hypertension; F17.210 Nicotine dependence, cigarettes, uncomplicated; K21.9 Gastro-esophageal reflux disease without esophagitis; E03.9 Hypothyroidism, unspecified; E78.5 Hyperlipidemia, unspecified; K21.00 Gastro-esophageal reflux disease with esophagitis, without bleeding; N40.0 Benign prostatic hyperplasia without lower urinary tract symptoms; G47.33 Obstructive sleep apnea (adult) (pediatric); G43.909 Migraine, unspecified, not intractable, without status migrainosus; I73.9 Peripheral vascular disease, unspecified; E66.3 Overweight; Z68.28 Body mass index [BMI] 28.0-28.9, adult; Z79.02 Long term (current) use of antithrombotics/antiplatelets; Z79.890 Hormone replacement therapy; Z79.899 Other long term (current) drug therapy; Z95.820 Peripheral vascular angioplasty status with implants and grafts; Z20.822 Contact with and (suspected) exposure to COVID-19
CPT/HCPCS: 94727; 94729; 71046; 71250; 80048; 80053; 83605; 83735; 84100; 85025; 87070; 87205; 87502; 87807; 87811; 88738; 94060; 94640; 96365; 96375; 99285; 99406

== ENCOUNTER 2024-08-24 17:32 | Inpatient (IN) | payer BC, SELFPAY ==
[2024-08-24] VITALS (14 sets, daily range): BP systolic 107–148; BP diastolic 67–79; BMI 28.3
--- NOTE | 2024-08-24 14:59 | ED.GENMED ---
History of Present Illness
General
Chief Complaint: DVT/Possible Blood Clot
Time Seen by Provider: 08/24/24 14:40
History of Present Illness
History of Present Illness:
Patient presents to the emergency department with left leg pain and paresthesias. He has a history of a left SFA stent and subsequent thrombectomy and restenting in 2021. He is on Plavix. Pain came on suddenly this morning
Phy Exam
Physical Exam
Physical Exam:
GENERAL APPEARANCE: NAD, well developed/ well nourished
EYES lids/conjunctiva normal
EARS/NOSE/THROAT Mucous membranes moist, uvula midline without oral pharyngeal erythema, exudate or swelling
HEAD/NECK normocephalic atraumatic, neck is supple.
RESPIRATORY respiratory effort normal, speaks in full sentences, no accessory muscle use. Lungs clear to auscultation without rhonchi, wheezes, rales
CARDIAC Regular rate and rhythm, no edema.
ABDOMINAL Soft, ND/NT. No pulsatile masses on exam, rebound tenderness, Villa sign or pain over Mcburney's point.
MUSCLES/EXTREMITIES right leg is normal. Left leg with palpable femoral pulses. Cool below the knee. Paleness noted to the left foot. There is no palpable DP or PT pulses. There is no dopplerable pulse 5 out of 5 strength. Sensation is intact
to light touch though patient notes paresthesias.
SKIN Warm, pink and dry. No rashes
NEUROLOGICAL Speech is clear and appropriate. Normal level of consciousness. 5/5 strength in all extremities.
PSYCH Normal mood and affect. Judgement/competence is appropriate
Course
Orders/Labs/Results
Orders:
Orders
08/24/24 14:52
Heparin 7,400 units IV NOW STA
Pulse Ox/cont/shift [RESP] Stat
Quantity: 1
08/24/24 14:53
Electrocardiogram (*1) Stat
Reason for Study: Other
Other Reason for Exam: chest pain
08/24/24 14:55
Notify MD As Directed
Notify physician if: Call provider for further orders if PTT is greater than or equal to 200 per heparin
infusion protocol.
Nursing to Place Non Medication Order As Directed
Physician Order: PTT 6 hours after initial start of Heparin infusion
Above order entered?: Yes
08/24/24 15:00
Heparin 44719 Units/250 ml 25,000 units in 250 ml IV PER PROTOCOL
Weight to be used for heparin protocol in kilograms (kg):: 92
Protocol:: DVT/PE
PTT Goal Range to be used:: PTT 73 to 111 seconds
Order type:: Initial
INITIAL Infusion Dose (UNITS/KG/hr) & then follow protocol:: 18 units/kg/hr
Infusion Dose in UNITS/hr & then follow protocol (UNITS/hr):: 1,700
INFUSION RATE in mL/hr & then follow protocol (mL/hr):: 17
For DVT/PE algorithm, re-bolus for low PTT?: Yes
PTT less than or equal to 64 seconds:: Re-bolus 80 units/kg (max 10,000units). Increase by 400 units/hr
(+ 4mL/hr)
PTT 64.1 to 72.9 seconds:: Re-bolus 40 units/kg (max 5,000 units). Increase by 200 units/hr
(+ 2mL/hr)
PTT 73 to 111 seconds:: Target Range. No change in rate.
PTT 111.1 to 130.9 seconds:: Decrease rate by 200 units/hr (- 2 mL/hr)
PTT 131 to 199.9 seconds:: HOLD for 1 hr. Then decrease by 300 units/hr (- 3mL/hr)
PTT greater than or equal to 200 seconds:: HOLD for 2 hrs & Notify Provider. Then decrease by 400 units/hr
(- 4mL/hr)
Lab follow-up:: Each change, PTT q6h until 2 consecutive are therapeutic. Then
PTT daily.
08/24/24 15:04
Basic Metabolic Panel Urgent
Complete Blood Count/With Diff Urgent
PTT Urgent
Comment: Obtain baseline before beginning heparin infusion if not already collected
Prothrombin Time Urgent
08/24/24 15:05
CT Abd Aorta Angio W/ Run Off Urgent
Comment:
Reason For Exam: LLE ischemia
08/24/24 15:14
Heparin 7,400 units IV PRN PRN
08/24/24 15:15
Heparin 3,700 units IV PRN PRN
08/24/24 21:20
PTT Urgent
Comment: Obtain baseline before beginning heparin infusion if not already collected
Abnormal Lab Results
08/24/24
15:04
MCHC 32.5 L g/dL
(33.0-37.0)
Carbon Dioxide 21 L mmol/L
(22-30)
08/24/24 15:04
08/24/24 15:04
Vital Signs
Initial and Last Documented VS:
Initial Vital Signs
Temp Pulse Resp BP Pulse Ox
98.3 F 66 16 121/68 94
08/24/24 14:22 08/24/24 14:22 08/24/24 14:22 08/24/24 14:22 08/24/24 14:22
Last Documented Vital Signs
Temp Pulse Resp BP Pulse Ox
98.3 F 58 18 109/75 95
08/24/24 14:22 08/24/24 14:56 08/24/24 14:56 08/24/24 14:56 08/24/24 14:56
*Critical Care Note
Total Time (30-74mins, 75-104mins- exclusive of procedures): 35
comment:
35 minutes of critical care time
ED Attending Note
ED Attending Note
ED Attending Note:
Patient presents with concern for acute arterial ischemia of the left lower extremity. Heparin ordered. Vascular surgery consulted.
Patient with occlusion of stent. Going to the OR. Consulted Dr. Park
-
Portions of this chart may have been created with voice recognition software.� Occasional wrong word or��sound alike� substitutions may have occurred due to the inherent limitations of voice recognition software.
Discharge Plan
Departure
Prescriptions:
No Action
clopidogrel 75 mg Tablet
75 mg PO QPM
amlodipine [Norvasc] 5 mg Tablet
5 mg PO QPM Qty: 0
pantoprazole 40 mg Tablet,Delayed Release (Dr/Ec)
40 mg PO DAILY
budesonide-formoterol [Symbicort] 80-4.5 mcg/actuation Hfa Aerosol Inhaler
2 puff inhalation R BID 30 Days Qty: 10.2 0RF
Spiriva Respimat 2.5 mcg/actuation mist
2 inh inhalation R DAILY
famotidine [Pepcid] 40 mg Tablet
40 mg PO DAILY
levothyroxine [Synthroid] 125 mcg Tablet
125 mcg PO DAILY
gabapentin 300 mg Capsule
600 mg PO DAILY
codeine-guaifenesin 10-100 mg/5 mL liquid
10 ml PO Q4HPRN PRN (Reason: COUGH)
Referrals:
Fercho Adams I., DO [Family Provider] -
Interventions
Interventions:
*Risk Screen - Suicide Last Done: 08/24/24 14:52
*General Assessment Last Done: 08/24/24 14:52
*Neglect/Abuse Screening Last Done: 08/24/24 14:52
ED- Fall Risk Assessment Last Done: 08/24/24 14:52
*ED COVID-19 Vaccine History Last Done: 08/24/24 14:52
ED- Cardiac Assessment Last Done: 08/24/24 14:52
ED- Pulmonary Assessment Last Done: 08/24/24 14:52
ED-Peripheral Vascular Assessment Last Done: 08/24/24 14:52
ED-Skin Assessment Last Done: 08/24/24 14:52
Discharge Date and Time
Print Language: TAMAZIGHT
[2024-08-24] MEDS: HEPARIN 7400 UNITS IV (15:14)
[2024-08-24 15:19] LABS: % Basophils 0.6 % (0-2); % Eosinophils 1.6 % (0-6); % Immature Granulocytes 0.3 % (0-0.5); % Lymphocytes 28.8 % (20.5-51.1); % Monocytes 7.9 % (1.7-9.3); % Neutrophils 60.8 % (42.2-75.2); Absolute Basophils 0.1 10^3/uL (0-0.2); Absolute Eosinophils 0.1 10^3/uL (0-0.7); Absolute Lymphocytes 2.2 10^3/uL (1.2-3.4); Absolute Monocytes 0.6 10^3/uL (0.1-0.6); Absolute Neutrophils 4.7 10^3/uL (1.4-6.5); Hematocrit 46.4 % (39.0-52.0); Hemoglobin 15.1 g/dL (13.0-18.0); Mean Corp Hgb Conc. 32.5 g/dL (33.0-37.0); Mean Corpuscular Hgb 30.5 pg (27.0-31.0); Mean Corpuscular Volume 93.7 fL (80.0-94.0); Mean Platelet Volume 9.1 fL (7.4-10.4); Nucleated Red Blood Cells % 0 % (-); Platelet Count 320 10^3/uL (130-400); Red Blood Cell Count 4.95 10^6/uL (4.70-6.10); Red Cell Dist. Width 12.2 % (11.5-14.5); White Blood Cell Count 7.7 10^3/uL (4.8-10.8)
[2024-08-24] MEDS: HEPARIN 25000 UNITS/250 ML IV (15:21)
[2024-08-24 15:27] LABS: APTT 26.3 Sec (23.4-35.0); INR 0.94; PT 12.8 Sec (11.4-14.6)
[2024-08-24 15:29] LABS: Blood Urea Nitrogen 11 mg/dl (9-20); Carbon Dioxide 21 mmol/L (22-30); Chloride 107 mmol/L (98-107); Estimated Creatinine Clearance 114 ml/min; Glucose 83 mg/dl (70-99); Sodium 140 mmol/L (135-145); eGFR > 60.00
[2024-08-24 15:39] LABS: Calcium 9.2 mg/dl (8.4-10.2); Potassium 4.4 mmol/L (3.5-5.1)
--- NOTE | 2024-08-24 16:33 | W.PN.VS ---
Today's Communication / Plan
-
or for agram and lysis
Assessment/Plan
-
ischemic left leg
- plan for agram and lysis
- hep
- iv hydration
Subjective Data
-
Date of Service: August 24, 2024
presents with several hours of left leg and foot pain
history of sfa angioplasty and stent x2 with thrombectomy
on plavix
continues to smoke
recent pneumonia
Objective Data
-
Vital Signs
Temp Pulse Resp BP Pulse Ox
98.3 F 54 16 115/73 96
08/24/24 14:22 08/24/24 16:15 08/24/24 16:15 08/24/24 15:00 08/24/24 16:00
Lab Results
08/24/24 15:04
08/24/24 15:04
Calcium 9.2 mg/dl (8.4-10.2) 08/24/24 15:04
Physical Exam
-
rrr
ctab
left foot cool
intact motor and sensation
cta with occlussion of distal sfa and pop
--- NOTE | 2024-08-24 16:35 | W.SUR.PREOP ---
Pre-Operative Surgical Note
-
I have examined this patient prior to the performance of the scheduled procedure.
The patient's condition is unchanged from the time of the current History and
Physical and the patient is able to undergo the scheduled procedure.
--- NOTE | 2024-08-24 17:37 | W.IMMPOSTOP ---
Surgical Immed Post Op Note
-
Primary Surgeon: emmett
Assisting Surgeon: none
Pre-op Diagnosis: ischemic left leg
Post-op Diagnosis: same
Procedure Performed: lle agram, thromectomy, lytic cath placement
Anesthesia Type: sedation and local
Specimen / Cultures: none
Estimated Blood Loss: 50
Complications: none
Operative Findings: thombosed sfa and pop
[2024-08-24] MEDS: HEPARIN 25000 UNITS/250 ML ART SHEATH (18:42)
[2024-08-24] MEDS: CATHFLO/ACTIVASE 16 MG INF CATH ×2 (18:43→22:14)
[2024-08-24] MEDS: CATHFLO/ACTIVASE 16 ML INF CATH ×2 (18:43→22:14)
[2024-08-24] MEDS: NSS 1000 INF CATH (18:45)
--- NOTE | 2024-08-24 19:35 | HPS.HSE ---
Addendum entered and electronically signed by Ladarius Haq MD 08/24/24 19:50:
Patient hypothermic so placed on bear hugger.
Original Note:
Family Physician
-
Family Physician: Fercho Adams
Chief Complaint
-
left lower extremity pain
History of Present Illness
64-year-old male past medical history of PAD status post SFA stent x 2 in 2018, 2021 with thrombectomy, hypertension, hypothyroidism, hyperlipidemia, GERD, chronic cough/COPD, daily tobacco use, alcohol use, presenting with left leg and foot pain
associated with coolness starting today.
Patient was admitted from 08/10-08/17 for right basilar pneumonia treated with antibiotics. He denies any cough or shortness of breath related to this.
He does smoke 5 cigarettes a day. He drinks 1-2 drinks of alcohol per day.
Medical History
Past Medical History
Past Medical History: Reports Other ( PAD status post SFA stent x 2 in 2018, 2021 with thrombectomy, hypertension, hypothyroidism, hyperlipidemia, GERD, chronic cough/COPD, daily tobacco use, alcohol use,)
Past Surgical History: Reports Other (SFA stent x 2 in 2018, 2021 with thrombectomy, thumb surgery )
Social History
Tobacco: Smoker
Alcohol: Daily
Drug: None
Family History
Family History: Not pertinent
Allergies / Home Medications
Allergies reflects when Allergies were last updated in [facility]
Home Medications with original date entered in [facility]
Allergy/Medication List:
Allergies
Allergy/AdvReac Type Severity Reaction Status Date / Time
No Known Allergies Allergy Verified 08/10/24 14:12
Home Medications
amlodipine 5 mg tablet (Norvasc) 5 mg PO QPM Blood Pressure ##0 08/10/24
clopidogrel 75 mg tablet 75 mg PO QPM Blood Clot Prevention/Tx 08/10/24
pantoprazole 40 mg tablet,delayed release 40 mg PO DAILY Gastrointestinal Issue 08/10/24
Symbicort 80 mcg-4.5 mcg/actuation HFA aerosol inhaler (budesonide-formoterol) 2 puff inhalation R BID 30 days #10.2 grams 08/13/24
codeine 10 mg-guaifenesin 100 mg/5 mL oral liquid 10 ml PO Q4HPRN PRN COUGH 08/24/24
famotidine 40 mg tablet (Pepcid) 40 mg PO DAILY 08/24/24
gabapentin 300 mg capsule 600 mg PO DAILY 08/24/24
levothyroxine 125 mcg tablet (Synthroid) 125 mcg PO DAILY 08/24/24
tiotropium bromide 2.5 mcg/actuation mist for inhalation (Spiriva Respimat) 2 inh inhalation R DAILY 08/24/24
Review of Systems
-
History Source: Patient
A 12 point ROS was completed and negative except as noted: Yes
Constitutional: Reports No Symptoms
EENT: Reports No Symptoms
Respiratory: Reports No Symptoms
Cardiac: Reports No Symptoms
Abdomen/GI: Reports No Symptoms
: Reports No Symptoms
Musculoskeletal: Reports No Symptoms
Skin: Reports No Symptoms
Neurological: Reports No Symptoms
Endocrine: Reports No Symptoms
Hematologic/Lymphatic: Reports No Symptoms
Psych: Reports No Symptoms
Physical Exam
Vital Signs
Vital Signs
Temp Pulse Resp BP Pulse Ox
96.7 F L 53 22 115/73 96
08/24/24 19:19 08/24/24 18:46 08/24/24 16:30 08/24/24 15:00 08/24/24 18:46
Physical Exam
General: Well Developed, Well Nourished and No Apparent Distress
HEENT: NormoCephalic, Moist mucous membranes and Atraumatic
Respiratory: Clear
Cardiac: S1/S2 and Regular Rhythm; No Murmur or Rub
GI: Soft, Non Tender, Non Distended and Normal Bowel Sounds; No Organomegaly
Rectal: Deferred by Provider
Musculoskeletal: No Clubbing, No Cyanosis and No Edema
Skin: No Rash
Neuro: Nonfocal/grossly intact
Laboratory Results
-
08/24/24 15:04
Laboratory Results
PT 12.8 Sec (11.4-14.6) 08/24/24 15:04
INR 0.94 08/24/24 15:04
APTT 26.3 Sec (23.4-35.0) 08/24/24 15:04
Data Reviewed
-
Lab Data: Labs Reviewed by me
Old Records: Reviewed
Impression/Plan
-
IMPRESSION:
PLAN:
# Acute left lower limb extremity ischemia status post angiogram/thrombectomy/lytic catheter placement
# History of left lower extremity PAD status post SFA stent x 2 thrombectomy
-CTA abdomen with runoff showed severe stenosis, near occlusion of the origin of the left external iliac artery, mild stenosis of the proximal left superficial femoral artery, occlusion of the left popliteal artery occluded stent and irregular
appearance of the stent, anterior tibial artery likely occluded in the distal calf left peroneal artery occluded in the proximal calf
-Underwent angiogram, thrombectomy and lytic catheter placement for tPA
-Heparin drip
-Hold Plavix
-Vascular surgery following
# Right lower lobe pneumonia status post treatment
-No longer has pulmonary symptoms
-CT scan shows evidence of residual pneumonia
Essential hypertension
-Continue amlodipine
Hypothyroidism
-Continue levothyroxine
Hyperlipidemia
GERD
-Continue famotidine, Protonix
Chronic cough/COPD
-Continue inhalers
Daily tobacco use
Alcohol use
Chronic neuropathy/pain
-Continue gabapentin
Full code
DVT prophylaxis�heparin drip
Regular diet
[2024-08-24 19:47] LABS: Hematocrit 43.2 % (39.0-52.0); Hemoglobin 14.9 g/dL (13.0-18.0); Mean Corp Hgb Conc. 34.5 g/dL (33.0-37.0); Mean Corpuscular Hgb 31.9 pg (27.0-31.0); Mean Corpuscular Volume 92.5 fL (80.0-94.0); Mean Platelet Volume 9.1 fL (7.4-10.4); Platelet Count 281 10^3/uL (130-400); Red Blood Cell Count 4.67 10^6/uL (4.70-6.10); Red Cell Dist. Width 12.2 % (11.5-14.5); White Blood Cell Count 7.6 10^3/uL (4.8-10.8)
[2024-08-24 20:00] LABS: APTT 65.5 Sec (23.4-35.0); Fibrinogen 246 MG/DL (199-459)
[2024-08-24] MEDS: SYMBICORT 80/4.5 MCG INHALER INH ×2 (20:04→22:11)
--- NOTE | 2024-08-24 20:23 | PTCARENOTE ---
Pt. received from PACU Change of shift, full assessment completed w/ day team, SPECIALIST EMPLOYEE LABOR RELATIONS, and TECHNICAL REPORT WRITER.
Orders verified, intra op discussed, sedation hemodynamics reviewed w/ SPECIALIST EMPLOYEE LABOR RELATIONS.
Site checks completed w/ above members, see angio flowsheet for further details.
Sheath remains in place, TPA + Heparin infusing through sheath, sheath transduced, all hemodynamic metrics will be obtained via NIBP.
Trending Fibro/PTT/CBC, 1900 Labs reported to ICU BEA as well as Vascular surgery via TT (Vivian).
[2024-08-24] MEDS: NSS 1000 IV (20:44)
[2024-08-24] MEDS: THIAMINE INJECTION 200 MG IV (20:44)
[2024-08-24] MEDS: DILAUDID 0.5 MG IV (20:44)
[2024-08-24 21:40] LABS: Alcohol 53 mg/dl
--- NOTE | 2024-08-24 23:40 | PTCARENOTE ---
No change in patient assessment.
See worklist flowsheets for further details.
[2024-08-25] VITALS (36 sets, daily range): BP systolic 94–139; BP diastolic 49–84; BMI 28.4
[2024-08-25 00:39] LABS: Hematocrit 41.3 % (39.0-52.0); Mean Corp Hgb Conc. 33.9 g/dL (33.0-37.0); Mean Corpuscular Hgb 31.5 pg (27.0-31.0); Mean Corpuscular Volume 92.8 fL (80.0-94.0); Mean Platelet Volume 8.9 fL (7.4-10.4); Platelet Count 271 10^3/uL (130-400); Red Blood Cell Count 4.45 10^6/uL (4.70-6.10); Red Cell Dist. Width 12.3 % (11.5-14.5); White Blood Cell Count 7.8 10^3/uL (4.8-10.8)
[2024-08-25 00:42] LABS: Fibrinogen 211 MG/DL (199-459)
[2024-08-25] MEDS: CATHFLO/ACTIVASE 16 ML INF CATH ×2 (01:32→05:16)
[2024-08-25] MEDS: CATHFLO/ACTIVASE 16 MG INF CATH ×2 (01:32→05:16)
[2024-08-25] MEDS: VALIUM INJECTION 5 MG IV (03:22)
[2024-08-25] MEDS: DILAUDID 0.5 MG IV (04:05)
--- NOTE | 2024-08-25 04:14 | PTCARENOTE ---
Addendum entered by Malcolm Wong RN 08/25/24 04:17:
Fibro levels sent to vascular attending via TT.
Original Note:
Pt. having increased levels of back pain. PRNs given.
Sheath site remains WNL. See flowsheets for further details.
[2024-08-25 05:21] LABS: Hematocrit 42.9 % (39.0-52.0); Hemoglobin 14.6 g/dL (13.0-18.0); Mean Corpuscular Hgb 31.6 pg (27.0-31.0); Mean Corpuscular Volume 92.9 fL (80.0-94.0); Mean Platelet Volume 9.1 fL (7.4-10.4); Platelet Count 265 10^3/uL (130-400); Red Blood Cell Count 4.62 10^6/uL (4.70-6.10); Red Cell Dist. Width 12.4 % (11.5-14.5); White Blood Cell Count 9.2 10^3/uL (4.8-10.8)
--- NOTE | 2024-08-25 05:22 | W.PN.ANS.POP ---
Anesthesia Post Operative
- Anesthesia Post Op Note
Vital Signs Stable-See Nursing Note: Yes
Airway Patent: Yes
Adequate Pain Control: Yes
Change in Mental Status: No
Current Postoperative Nausea & Vomiting: No
Anesthesia Complications: No
General Anesthetic Recall: No
Unplanned Admission: No
Post Op Hydration Adequate: Yes
--- NOTE | 2024-08-25 05:26 | PTCARENOTE ---
GABINO albarran, pt. now made NPO.
[2024-08-25 05:32] LABS: Fibrinogen 224 MG/DL (199-459)
[2024-08-25 05:58] LABS: Blood Urea Nitrogen 11 mg/dl (9-20); Calcium 8.4 mg/dl (8.4-10.2); Chloride 107 mmol/L (98-107); Estimated Creatinine Clearance 114 ml/min; Glucose 96 mg/dl (70-99); Magnesium 1.6 mg/dl (1.6-2.3); Potassium 4.3 mmol/L (3.5-5.1); Sodium 138 mmol/L (135-145); eGFR > 60.00
--- NOTE | 2024-08-25 06:06 | PTCARENOTE ---
Addendum entered by Malcolm Wong RN 08/25/24 06:17:
Vascular updated on patients persistent severe back pain, treating with PRNs, via TT from vascular: ok to tilt bed 10-15 degrees to see if pain is alleviated.
Original Note:
Vascular surgery updated via TT of fibrinogen level as well as pt. condition HS.
No new orders placed.
[2024-08-25] MEDS: DILAUDID 0.25 MG IV ×2 (06:11→07:16)
[2024-08-25 06:31] LABS: Carbon Dioxide 22 mmol/L (22-30)
--- NOTE | 2024-08-25 07:39 | W.PN.VS ---
Addendum entered and electronically signed by Rigoberto Calderon III, MD 08/25/24 08:41:
This patient was seen and examined with TANK Parnell. I agree with the history and physical exam as well as the assessment and plan. I have the following additions:
Arterial thrombolysis initiated 08/24/2024
Acute onset of left foot pain this morning
On physical exam his calf, correia and lateral lower leg are soft and without tenderness
Planning to return to the operating room now for lysis check and possible additional endovascular intervention
Signed:
Rigoberto Calderon III, MD
[facility]
[phone] (gacm)
Original Note:
Today's Communication / Plan
-
See below.
Assessment/Plan
-
Assessment: 64 year old male ischemic left leg, POD #1 lle agram, thromectomy, lytic cath placement
Plan:
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
Subjective Data
-
Date of Service: August 25, 2024
Asked by nursing to see patient urgently as he is reporting an acute onset of severe left foot/calf pain and new onset of dusky appearance to left foot. Responded immediately to bedside once tiger text was received. Patient endorses that he was
doing well all night, until roughly 15 minutes ago when he began experiencing severe left foot and calf pain, 10/10 on pain scale.
Objective Data
-
Vital Signs
Temp Pulse Resp BP Pulse Ox
97.8 F 64 16 139/74 95
08/25/24 03:16 08/25/24 06:00 08/25/24 06:00 08/25/24 06:00 08/25/24 06:00
Intake and Output
08/24/24 08/25/24 08/26/24
06:59 06:59 06:59
Intake Total 1500 / 1500
Output Total 1659
Balance -160 / -160
Intake:
Oral fluids 0 / 0
IV fluids (Total) 1500 / 1500
HEPARIN 90493 UNITS/250 ML 25, 60 / 60
000 units In 250 ml @ 500 UNITS
/HR 5 mls/hr ART SHEATH .Q24H
VIJAYA Rx#:[id number]
Nss 1,000 ml @ 46 mls/hr INF 552 / 552
CATH .[id number] VIJAYA Rx#:[id number]
Nss 1,000 ml @ 70 mls/hr IV . 840 / 840
[id number] VIJAYA Rx#:[id number]
TPA 1mg/hr 48 / 48
IV piggybacks 0 / 0
Output:
Urine, Calderon 1659
Lab Results
08/25/24 05:02
Calcium 8.4 mg/dl (8.4-10.2) 08/25/24 05:02
Phosphorus 4.0 mg/dl (2.5-4.5) 08/25/24 05:02
Magnesium 1.6 mg/dl (1.6-2.3) 08/25/24 05:02
Physical Exam
-
AAOx3, writhing in bed reporting severe pain
No tachycardia
No dyspnea on room air
Lysis catheter in place at right groin site CDI, no hematoma, all surrounding compartments soft
Left foot dusky digits, hypersensitive to any touch to left foot, foot cool, absent DP, PT signal by Doppler, left femoral pulse non-palpable, Doppler femoral pulse, left calf soft
[2024-08-25] MEDS: ATIVAN 0.5 MG IV (07:40)
--- NOTE | 2024-08-25 07:44 | PTCARENOTE ---
0700 Received pt awake and alert.c/o left foot pain.Neurovascular check and assessment completed at bedside in tandem with outgoing RN. + Doppler PT and DP pulses left foot.Left foot was warm and slightly dusky. At 0713 pt c/o increased pain left
foot 12/10. Burning.Left foot more dusky, warm.Dr Calderon and Vascular GERIATRIC SOCIAL WORKER immediately notified and at bedside. Unable to obtain left foot DP with doppler.+ PT left foot with doppler.Dilaudid and Ativan given as ordered.Pt's at bedside.Plan of
care discussed.Report given to Customer Facilities Supervisor RN. SR-ST noted. IVF infusing.Right groin A Line sheath intact with Alteplase and Heparin infusing as ordered.Lungs diminished throughout.POX 92%.NPO.Calderon draining yellow urine.Pt was writhing in pain,but
seems more comfortable now.
[2024-08-25] MEDS: SPIRIVA RESPIMAT 2.5 MCG 2 PUFF INH (07:51)
[2024-08-25] MEDS: SYMBICORT 80/4.5 MCG INHALER 2 PUFF INH ×2 (07:51→20:29)
--- NOTE | 2024-08-25 08:24 | PTCARENOTE ---
Pt transported to Analytical Research Chemist via bed.
--- NOTE | 2024-08-25 08:30 | CON.INTV ---
Addendum entered and electronically signed by Magen Alston MD 08/25/24 15:59:
Patient's , Flow, at bedside and I answered all of her questions.
Original Note:
Consultation
Consultation Request
Date/Time Consultation Requested: 08/24/20241636
Date/Time Consultation Performed: 08/25/2024 - 829
Requesting Provider: Dr. Park
Performing Provider: Dr. Alston
Reason for Consultation: LLE ischemia s/p OR for lysis infusion
Medical History
-
Chief Complaint: Left leg pain
History of Present Illness:
64-year-old male active tobacco smoker (cigars + 0.25 PPD) who presents with left leg pain. Patient has a history of a left lower extremity stent and believes that it could be kinked or clogged. He had muscle cramping with foot discoloration +
coolness. In triage the left lower extremity pulse was nonpalpable. Of note he was recently hospitalized here at from 08/10 - 08/13/2024 due to pneumonia, and he was discharged home and finished a course of antibiotics with cefdinir +
Zithromax. At that time he was started on Symbicort 80 mcg + Spiriva Respimat 2.5 mcg. He was told to follow-up with pulmonary in the office. In the ER on 08/24/2024, pulse rate 54, he was hypothermic to 96.9 �F, breathing at 16 breaths/min, BP
148/79 and saturating 93%. With 2 L/min NC applied, his saturations improved to 100%. Labs were insignificant. CTA abdominal aorta with runoff obtained which showed severe stenosis with near occlusion at the origin of the left external iliac
artery, with mild stenosis of the proximal left superficial femoral artery and occlusion of a left popliteal artery with occluded stent and irregular appearance of the stent which may be fractured above the knee. His right lower extremity shows
significant right popliteal artery stenosis. Vascular surgery was consulted and he went to the OR for mechanical thrombectomy of the SFA and popliteal arteries with a penumbra thrombectomy catheter and a lytic catheter was placed into the SFA to
the anterior tibial artery with tPA bolus infusion was started. Patient was then transferred to the ICU for further care with campus security officer services consulted for additional management/recommendations.
Patient seen and evaluated this morning. Left leg DP pulse positive this morning via Doppler but then lost shortly afterwards. Increasing left lower extremity pain and also worsening duskiness. Went back to OR this morning and found to have a
left lower extremity occluded/fractured stent --> underwent diagnostic arteriogram with balloon angioplasty and a new stent was placed. There was minimal EBL, and he was transferred back to ICU. He now has positive DP and PT pulses bilaterally.
He is sleepy, at bedside. HR 56, BP 116/71 and SpO2 99% on NRB.
PMHx: Arthritis, history of blood clots, migraine headaches, thyroid disease, carpal tunnel syndrome, history of bloating/dyspepsia, colon polyps, PAD s/p LLE stent, hyperlipidemia, hypertension, GERD, hypothyroidism, suspected history of COPD
PSHx: Hernia repair, left lower extremity vascular stent
Past Medical History
Past Medical History: Other (Above as per HPI)
Past Surgical History: Other (Above as per HPI)
Social History
Tobacco: Smoker (0.25 PPD + cigars)
Alcohol: Occasional (4 or more times a week)
Drug: None
Personal:
Living: With Family
Family History
Family History: Reviewed & Not Pertinent
Allergies / Home Medications
Allergies
Allergy/AdvReac Type Severity Reaction Status Date / Time
No Known Allergies Allergy Verified 08/10/24 14:12
Home Medications
�Medication �Instructions �Recorded �Confirmed �Last Taken �Type
amlodipine 5 mg tablet (Norvasc) 5 mg PO QPM Blood Pressure ##0 08/10/24 08/24/24 08/23/24 History
clopidogrel 75 mg tablet 75 mg PO QPM Blood Clot 08/10/24 08/24/24 08/23/24 History
Prevention/Tx
pantoprazole 40 mg tablet,delayed 40 mg PO DAILY Gastrointestinal 08/10/24 08/24/24 08/24/24 History
release Issue
Symbicort 80 mcg-4.5 mcg/actuation 2 puff inhalation R BID 30 days 08/13/24 08/24/24 08/24/24 Rx
HFA aerosol inhaler #10.2 grams
(budesonide-formoterol)
codeine 10 mg-guaifenesin 100 mg/5 10 ml PO Q4HPRN PRN COUGH 08/24/24 08/24/24 08/17/24 History
mL oral liquid
famotidine 40 mg tablet (Pepcid) 40 mg PO DAILY 08/24/24 08/24/24 08/24/24 History
gabapentin 300 mg capsule 600 mg PO DAILY 08/24/24 08/24/24 08/24/24 History
levothyroxine 125 mcg tablet 125 mcg PO DAILY 08/24/24 08/24/24 08/24/24 History
(Synthroid)
tiotropium bromide 2.5 2 inh inhalation R DAILY 08/24/24 08/24/24 08/24/24 History
mcg/actuation mist for inhalation
(Spiriva Respimat)
Review of Systems
-
Unable to Obtain full review of systems at this time due to: Acuity
Vitals / Labs / Diagnostic Testing
Vital Signs
Temp Pulse Resp BP Pulse Ox
98.4 F 78 15 120/77 92
08/25/24 07:40 08/25/24 07:56 08/25/24 07:56 08/25/24 07:00 08/25/24 08:00
Lab Data
08/25/24 05:02
Laboratory Results
08/24/24 08/24/24
15:04 19:29
PT 12.8
INR 0.94
APTT 26.3 65.5 H
Diagnostic Testing:
Physical Exam
-
HEENT: Normocephalic and Anicteric
Cardiovascular: S1/S2 and Peripheral Edema (negative)
Respiratory: Wheeze (negative), Rales (negative), Rhonchi (negative) and Non-Labored Respirations
GI: Soft, Non Distended, Non Tender and Normal Bowel Sounds
Neurology: Alert, Tremors (negative) and Other (Lethargic after returning from OR this morning)
Skin: Warm and Dry
General: Respiratory Distress (negative), Comfortable, Chills (negative) and Sweats (negative)
Assessment
-
Assessment: 64-year-old male active tobacco smoker (cigars + 0.25 PPD) who presents with left leg pain, with CTA abdominal aorta with runoff showing severe stenosis with near occlusion at the origin of the left external iliac artery, with mild
stenosis of the proximal left superficial femoral artery and occlusion of a left popliteal artery with occluded stent and irregular appearance of the stent which may be fractured above the knee. His right lower extremity shows significant right
popliteal artery stenosis. He went to the OR on 08/24/2024 for mechanical thrombectomy of the SFA and popliteal arteries and lytic catheter placement into the SFA to the anterior tibial artery with tPA bolus infusion started and was transferred to
the ICU for further care with campus security officer services consulted for additional management/recommendations.
Chronic conditions SPEECH ASSISTANT: Arthritis, history of blood clots, migraine headaches, thyroid disease, carpal tunnel syndrome, history of bloating/dyspepsia, colon polyps, PAD s/p LLE stent, hyperlipidemia, hypertension, GERD, hypothyroidism, suspected
history of COPD
Impression:
#Acute left lower extremity limb ischemia s/p catheter directed thrombolysis with mechanical thrombectomy of the SFA + popliteal arteries (OR date: 08/24/2024) with recurrent ischemia s/p balloon angioplasty and stenting of left popliteal artery and
balloon angioplasty of the below�knee popliteal artery stenosis (OR date: 08/25/2024)
#Suspected COPD on Symbicort + Spiriva as an outpatient
#GERD on PPI
#Recent bilateral lower lobe pneumonia (R >L) - initially seen on CXR from 08/10/[address] Chest on
#Mild restrictive lung disease with post-bronchodilator FVC: 2.9 L / 63% predicted via PFT from 08/12/2024
#Active tobacco smoker (0.25 PPD and cigars)
Plan:
Postoperative surgical intensive care unit monitoring
Supplemental oxygen as needed to maintain SpO2 >90-94%
Patient had a full PFT on 08/12/2024 showing post-bronchodilator obstructive lung defect which was severe however pre-bronchodilator FEV1/FVC was WNL at 70 (91% predicted)
prn nebulized bronchodilators, and continue with Symbicort + Spiriva which were started on last admission following a diagnosis of pneumonia
Incentive spirometry encouraged 10x per hour for at least 4 hrs a day
Aspiration precautions
Pain control
Neuro and vascular checks per protocol
Maintain MAP>65
Replete electrolytes with K>4, Mg>2
Maintain euglycemia with goal BG 140-180
Vascular surgery following-correspondence and operative notes reviewed
Transfuse blood products as needed to keep Hb>7g/dL, and plt>50k (given post-operative status)
DVT prophylaxis: heparin gtt
Early nutrition
Early mobilization
Critical care statement: A total of 44 minutes of critical care time was provided for this patient today. This includes management of unstable vital signs, evaluation of the patient at bedside, reviewing the patient's pertinent medical records
including radiographs, microbiology, laboratory evaluations, and discussion with primary team, consultants, pharmacy, nutrition, physical therapy, case management, charge nurse, critical care nursing, and respiratory therapy.
Imaging:
CTA abdominal aorta with runoff 08/24/2024:
Atherosclerotic changes of abdominal aorta without aneurysmal dilatation or dissection.
Severe stenosis, near occlusion at the origin of the left external iliac artery.
Left lower extremity: Mild stenosis of the proximal left superficial femoral artery. Occlusion of the left popliteal artery with occluded stent and irregular appearance of the stent which may be 'fracture' above the knee, atypical appearance.
Reconstitution of arterial blood flow below the left knee predominantly via the posterior tibial artery to the left ankle. Anterior tibial artery likely occluded in the distal calf and left peroneal artery occluded in the proximal calf.
Right lower extremity: Likely significant right popliteal artery stenosis. Likely mild right common femoral artery and proximal right superficial femoral artery stenoses.
Irregular patchy opacity in the lower lobe of the right lung which could represent pneumonitis. Is there a history of aspiration?
Bilateral renal cysts.
Small simple left lobe hepatic cyst.
Sigmoid diverticulosis.
Mildly enlarged prostate gland.
[2024-08-25 08:59] LABS: ACT-LR - POC 200 Seconds (116-155)
--- NOTE | 2024-08-25 09:55 | W.IMMPOSTOP ---
Surgical Immed Post Op Note
-
Primary Surgeon: Dr. Rigoberto Calderon III, MD
Assisting Surgeon: Michel Torres MD, PhD (PGY-2)
Pre-op Diagnosis: Acute lower limb ischemia s/p catheter directed lysis
Post-op Diagnosis: Acute lower limb ischemia s/p catheter directed lysis
Procedure Performed: Diagnostic arteriogram, Viabahn stent placement, balloon angioplasty
Anesthesia Type: MAC
Specimen / Cultures: None
Estimated Blood Loss: Minimal
Complications: None
Operative Findings: The patient was brought to the OR and placed in the supine position. The previously placed sheath and lysis catheter in the right groin was prepped in with betadine. Arteriogram showed a patent left SFA, proximal popliteal
artery with stents but the distal popliteal artery stent appeared fractured. In addition, the below knee popliteal artery on the left side demonstrated a focal area of narrowing. Distally, there was good 2 vessel run off (AT and PT), with some
sluggish flow through the peroneal artery. We advanced a wire down into the below knee popliteal artery and removed the lysis catheter. A catheter was advanced over wire and we delivered a new viabahn stent within the distal site of the previous
left popliteal artery stent. Post stent balloon angioplasty profiled well. We then performed a balloon angioplasty of the focal area of stenosis in the below knee popliteal artery. Completion arteriogram showed good flow through the SFA, popliteal
artery stents, and distal vessels with 2-vessel run off (PT and AT). There continued to be some flow through the proximal and mid segments of the peroneal artery. A perclose device was used to close the arteriotomy puncture site. Manual pressure was
held for 5 minutes. Both DP and PT signals were dopplerable at the conclusion of the case. The patient was transferred to the ICU in stable condition.
[2024-08-25] MEDS: HEPARIN 25000 UNITS/250 ML IV (10:33)
[2024-08-25 10:40] LABS: APTT 30.8 Sec (23.4-35.0)
--- NOTE | 2024-08-25 10:48 | OR.RPT ---
Operative Report
Operative Report
Date of Operation: 08/25/2024
Pre Op Diagnosis: Acute limb ischemia, left lower extremity status post initiation of arterial thrombolysis 08/24/2024
Post Op Diagnosis: Acute limb ischemia, left lower extremity status post initiation of arterial thrombolysis 08/24/2024
Procedure:
1.) Balloon angioplasty and stenting of left popliteal artery (6 mm x 150 mm Viabahn stent graft)
2.) Balloon angioplasty of the below-knee popliteal artery stenosis (5 mm x 40 mm angioplasty balloon)
3.) Diagnostic left lower extremity arteriogram
4.) Pro-glide closure device, right femoral artery access
Surgeon: Rigoberto Calderon III, MD
Sheet Metal Layout Mechanic: Michel Torres MD PhD, PGY2
Anesthesia: Sedation with local
Fluoroscopy:
11.5 min
72 mGy
14.10 Gy.cm2
Complications: None
Estimated Blood Loss: Minimal
History and Indications for Procedure: 64-year-old male status post initiation of arterial thrombolysis for acute limb ischemia on 08/24/2024. He was taken back to the operating room today for arteriogram and possible endovascular intervention
Procedure in Detail: John Jacome was correctly identified and placed supine on the operating table. After adequate induction of anesthesia the bilateral groins, including the existing 7 Maori sheath and lysis catheter were prepped and draped in
the usual sterile fashion with Betadine. A timeout was performed with the nursing and anesthesia staff confirming the patient's identity as well as the nature and laterality of the procedure.
A Storq wire was advanced through the existing lysis catheter and placed in the anterior tibial artery. The lysis catheter was removed. A diagnostic left lower extremity arteriogram was then performed through the sheath which demonstrated the
following:
LEFT LOWER EXTREMITY:
Superficial femoral artery: Patent with no filling defects or stenosis identified
Popliteal artery: Stents patent. Obvious stent fracture and irregularity seen behind the knee. Flow irregularity and residual thrombus identified within the popliteal artery behind the knee. Below-knee popliteal artery with focal area of residual
thrombus and stenosis identified
Anterior tibial artery: Patent. Flow did lag behind the posterior tibial artery but the artery was patent and continued across the ankle to form the dorsalis pedis artery.
Tibioperoneal trunk: Patent
Peroneal artery: Patent
Posterior tibial artery: Patent. Brisk flow. No areas of filling defects or stenosis identified. Continued across the ankle into the foot to form plantar branches
ENDOVASCULAR INTERVENTION: Systemic heparin was administered. The Storq wire was pulled out from the anterior tibial artery and positioned in the tibioperoneal trunk. Exchanged out for a V18 wire. A 6 mm x 150 mm Viabahn stent graft was then
brought into position under radiographic guidance. The popliteal artery stent was re-lined, covering the segment of stent fracture and irregularity. The stent was deployed in the desired location. The stent was then postdilated with a 6 mm x 150
mm angioplasty balloon. The area of residual thrombus and stenosis below the knee was treated with a 5 mm x 40 mm angioplasty balloon, holding the balloon at nominal pressure for 2-minute inflation.
COMPLETION ARTERIOGRAM: Excellent technical result. Brisk flow through a widely patent popliteal artery with no filling defects or residual stenosis identified. Brisk flow through the below-knee popliteal artery with no residual stenosis or
filling defects identified. Patent anterior tibial artery and posterior tibial artery. Patent peroneal artery. Once again demonstrated was flow in the anterior tibial artery and peroneal artery that lagged behind flow through the posterior tibial
artery. Flow into the foot through the dorsalis pedis and plantar branches identified.
Satisfied with this result we concluded the procedure. The sheath tip was pulled back into the right external iliac artery. A sheath arteriogram confirmed access in the right common femoral artery over the femoral head. The V18 wire was removed.
A Storq wire was placed through the sheath. A single Pro-glide closure device was utilized to obtain hemostasis in the right femoral access. The knots were secured and hemostasis was achieved.
The patient tolerated the procedure well and was taken back to the ICU in stable condition. At the conclusion of the case the patient had a palpable left dorsalis pedis artery pulse and left posterior tibial artery pulse.
Attestation: I was present and responsible for the entire procedure.
Signed:
Rigoberto Calderon III, MD
[facility] Vascular Surgery
[phone] (cell)
--- NOTE | 2024-08-25 11:00 | CM ---
CM following re: discharge planning.
Discussed in rounds, reviewed pt's chart, met with pt and pt's spouse at bedside.
Pt is a 64 year old male, admitted with primary dx of s/p Diagnostic arteriogram, Viabahn stent placement, balloon angioplasty procedure performed today. Vascular surgery following.
Pt is sleeping recovering after the procedure, information obtained from pt's spouse.
Pt lives with spouse split level house, 5 steps to enter and 8 steps up, has 3 supportive children. 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
PCP: Fercho Adams
Pharmacy: [facility].
D/C plan: home with anticipated no needs.
CM will follow with discharge plan updates as hospitalization progresses
--- NOTE | 2024-08-25 11:19 | PTCARENOTE ---
0980-Received pt from [employer].Pt is drowsy.Awakens to voice.Speech is appropriate.+TAYLOR noted.SB-SR noted.IVF infusing.Peripheral Heparin gtt initiated at 1033. POX 100% with CAM.No BM.Calderon draining yellow urine.Right groin dressing intact.+ DP and
PT Doppler pulses bilaterally.Pts at bedside.Plan of care discussed.
--- NOTE | 2024-08-25 12:21 | PTCARENOTE ---
Pt assessed.Pt is awake and alert.Denies pain at this time.Neurovascular checks as documented.Plan of care discussed.
[2024-08-25] MEDS: SYNTHROID 125 MCG PO (12:39)
[2024-08-25] MEDS: NEURONTIN 600 MG PO (12:39)
[2024-08-25] MEDS: PROTONIX 40 MG PO (12:40)
[2024-08-25] MEDS: THIAMINE INJECTION 200 MG IV ×2 (12:40→20:28)
[2024-08-25] MEDS: NSS IV (12:40)
[2024-08-25] MEDS: PEPCID 40 MG PO (12:40)
[2024-08-25] MEDS: FOLVITE 1 MG PO (12:40)
[2024-08-25] MEDS: NSS 1000 IV (15:32)
--- NOTE | 2024-08-25 16:00 | PTCARENOTE ---
Pt assessed.No change in assessment noted.
[2024-08-25 17:17] LABS: APTT 148.7 Sec (23.4-35.0)
[2024-08-25] MEDS: NORVASC 5 MG PO (18:11)
--- NOTE | 2024-08-25 18:30 | PTCARENOTE ---
1800-PTT 148.7.Heparin gtt on hold x 1 hour as ordered.
--- NOTE | 2024-08-25 21:00 | PTCARENOTE ---
Assumed care of pt. approx 1900.
Bedside pulse checks confirmed with paul QUIROZ.
Pt. on heparin gtt, not therapeutic at this time.
See assessment flowsheet for further details.
[2024-08-26] VITALS (11 sets, daily range): BP systolic 100–129; BP diastolic 44–78; BMI 28.6
--- NOTE | 2024-08-26 00:27 | PTCARENOTE ---
No change in pt. assessment.
[2024-08-26 01:33] LABS: APTT 106.2 Sec (23.4-35.0)
--- NOTE | 2024-08-26 03:59 | PTCARENOTE ---
Heparin gtt x1 therapeutic.
No further change in assessment.
[2024-08-26] MEDS: NSS 1000 IV (05:00)
[2024-08-26] MEDS: HEPARIN 25000 UNITS/250 ML IV (05:00)
[2024-08-26 05:16] LABS: Hematocrit 39.3 % (39.0-52.0); Hemoglobin 13.5 g/dL (13.0-18.0); Mean Corp Hgb Conc. 34.4 g/dL (33.0-37.0); Mean Corpuscular Hgb 31.4 pg (27.0-31.0); Mean Corpuscular Volume 91.4 fL (80.0-94.0); Mean Platelet Volume 9.5 fL (7.4-10.4); Platelet Count 275 10^3/uL (130-400); Red Cell Dist. Width 11.9 % (11.5-14.5); White Blood Cell Count 12.3 10^3/uL (4.8-10.8)
[2024-08-26 05:44] LABS: Blood Urea Nitrogen 14 mg/dl (9-20); Calcium 8.3 mg/dl (8.4-10.2); Carbon Dioxide 23 mmol/L (22-30); Chloride 108 mmol/L (98-107); Estimated Creatinine Clearance 114 ml/min; Glucose 127 mg/dl (70-99); Sodium 138 mmol/L (135-145); eGFR > 60.00
--- NOTE | 2024-08-26 08:00 | PTCARENOTE ---
Received pt sleeping.Awakens to voice.Speech is appropriate.+TAYLOR.Denies pain.SR noted.IVF and Heparin gt infusing.+ PT/DP pulses by Doppler.POX 94% on RA.Decreased breath sounds.Appetite excellent.No BM.Calderon draining yellow urine.Right groin site
intact without drainage.Pt's at bedside.Plan of care discussed.
[2024-08-26] MEDS: SPIRIVA RESPIMAT 2.5 MCG 2 PUFF INH (08:13)
[2024-08-26] MEDS: SYMBICORT 80/4.5 MCG INHALER 2 PUFF INH (08:13)
--- NOTE | 2024-08-26 08:16 | W.PN.VS ---
Addendum entered and electronically signed by Rigoberto Calderon III, MD 08/26/24 11:03:
This patient was seen and examined with TANK Ventura. I agree with the history and physical exam as well as the assessment and plan. I have the following additions:
Palpable left pedal pulses
Groin site soft and flat
Agree with plan
Signed:
Rigoberto Calderon III, MD
[facility] Vascular Surgery
[phone] (cell)
Original Note:
Today's Communication / Plan
-
Patient seen and examined at bedside with Dr. Rigoberto Calderon III, below plan reviewed with attending.
Assessment/Plan
-
Assessment: 64 year old male ischemic left leg, POD #LLE agram, thrombectomy, lytic cath placement, POD#2 Balloon angioplasty and stenting of left popliteal artery (6 mm x 150 mm Viabahn stent graft). Balloon angioplasty of the below-knee popliteal
artery stenosis (5 mm x 40 mm angioplasty balloon). Diagnostic left lower extremity arteriogram. Pro-glide closure device, right femoral artery access
Plan:
- Will transition IV heparin to PO Eliquis 5mg BID with antiplatelet Aspirin 81mg PO daily for one month, then at follow up office appointment will transition to either DAPT (81mg PO aspirin daily with Plavix 75mg PO daily) or compass protocol
(Xarelto 2.5mg PO BID and Aspirin 81mg PO daily) for medical management
- Discontinue Calderon catheter
- OOB to chair with progression to ambulation as tolerated
- Possible discharge later today
Subjective Data
-
Date of Service: August 26, 2024
Patient seen and examined at bedside, offers no complaints. Reports near resolution of left foot pain. Denies nausea, vomiting, fever, and chills.
Objective Data
-
Vital Signs
Temp Pulse Resp BP Pulse Ox
97.7 F 59 19 100/52 95
12/03/24 08:03 08/26/24 08:14 08/26/24 08:14 08/26/24 04:00 08/26/24 08:14
Intake and Output
08/25/24 08/26/24 08/27/24
06:59 06:59 06:59
Intake Total 1500 / 1625 2772 / 2772
Output Total 1660 / 1760 2565 / 2565
Balance -160 / -135 207 / 207
Intake:
Oral fluids 0 / 0 760 / 760
IV fluids (Total) 1500 / 1625 2011
HEPARIN 92485 UNITS/250 ML 25, 60 / 65 10 / 10
000 units In 250 ml @ 500 UNITS
/HR 5 mls/hr ART SHEATH .Q24H
VIJAYA Rx#:[id number]
Heparin 292 / 292
Nss 1,000 ml @ 46 mls/hr INF 552 / 598 92 / 92
CATH .[id number] VIJAYA Rx#:[id number]
Nss 1,000 ml @ 70 mls/hr IV . 840 / 910 1610 / 1610
[id number] VIJAYA Rx#:[id number]
TPA 1mg/hr 48 / 52 8 / 8
IV piggybacks 0 / 0 0 / 0
Output:
Urine, Calderon 1660 / 1760 2565 / 2565
Lab Results
08/26/24 04:57
08/26/24 04:57
Calcium 8.3 mg/dl (8.4-10.2) L 08/26/24 04:57
Phosphorus 4.0 mg/dl (2.5-4.5) 08/25/24 05:02
Magnesium 1.6 mg/dl (1.6-2.3) 08/25/24 05:02
Physical Exam
-
AAOx3, NAD
No tachycardia
No dyspnea on room air
ABD flat, non-tender, non-distended
Right groin site CDI, no evidence of edema or hematoma
Left DP palpable, left PT by doppler, foot warm
--- NOTE | 2024-08-26 08:28 | W.PN.INTV ---
Today's Communication / Plan
Recommendations
Up OOB as tolerated
Pain control
Spiriva/Symbicort
Encourage incentive spirometer use
Patient is being prepared for discharge home today. No additional recommendation at this time - Deck Officer/Pulmonary service will now sign off. Please reconsult if there are any additional questions/concerns, or if patient's respiratory status
deteriorates.
Assessment
-
Assessment: 64-year-old male active tobacco smoker (cigars + 0.25 PPD) who presents with left leg pain, with CTA abdominal aorta with runoff showing severe stenosis with near occlusion at the origin of the left external iliac artery, with mild
stenosis of the proximal left superficial femoral artery and occlusion of a left popliteal artery with occluded stent and irregular appearance of the stent which may be fractured above the knee. His right lower extremity shows significant right
popliteal artery stenosis. He went to the OR on 08/24/2024 for mechanical thrombectomy of the SFA and popliteal arteries and lytic catheter placement into the SFA to the anterior tibial artery with tPA bolus infusion started and was transferred to
the ICU for further care with self rising flour mixer services consulted for additional management/recommendations.
Chronic conditions MANAGER CONTINUOUS IMPROVEMENT: Arthritis, history of blood clots, migraine headaches, thyroid disease, carpal tunnel syndrome, history of bloating/dyspepsia, colon polyps, PAD s/p LLE stent, hyperlipidemia, hypertension, GERD, hypothyroidism, suspected
history of COPD
Impression:
#Acute left lower extremity limb ischemia s/p catheter directed thrombolysis with mechanical thrombectomy of the SFA + popliteal arteries (OR date: 08/24/2024) with recurrent ischemia s/p balloon angioplasty and stenting of left popliteal artery and
balloon angioplasty of the below�knee popliteal artery stenosis (OR date: 08/25/2024)
#Suspected COPD on Symbicort + Spiriva as an outpatient
#GERD on PPI
#Recent bilateral lower lobe pneumonia (R >L) - initially seen on CXR from 08/10/[address] Chest on
#Mild restrictive lung disease with post-bronchodilator FVC: 2.9 L / 63% predicted via PFT from 08/12/2024
#Active tobacco smoker (0.25 PPD and cigars)
Plan:
Postoperative surgical intensive care unit monitoring
Supplemental oxygen as needed to maintain SpO2 >90-94%
Patient had a full PFT on 08/12/2024 showing post-bronchodilator obstructive lung defect which was severe however pre-bronchodilator FEV1/FVC was WNL at 70 (91% predicted)
prn nebulized bronchodilators, and continue with Symbicort + Spiriva which were started on last admission following a diagnosis of pneumonia
Incentive spirometry encouraged 10x per hour for at least 4 hrs a day
Aspiration precautions
Pain control
Neuro and vascular checks per protocol
Maintain MAP>65
Replete electrolytes with K>4, Mg>2
Maintain euglycemia with goal BG 140-180
Nicotine patch recommended
Vascular surgery following-correspondence and operative notes reviewed
Transfuse blood products as needed to keep Hb>7g/dL, and plt>50k (given post-operative status)
DVT prophylaxis: heparin gtt - defer stopping this to vascular surgery
Early nutrition
Early mobilization
Patient is being prepared for discharge home today. No additional recommendation at this time - Deck Officer/Pulmonary service will now sign off. Thank you for allowing us to be involved in the care of this patient. Please reconsult if there are
any additional questions/concerns, or if patient's respiratory status deteriorates.
Imaging:
CTA abdominal aorta with runoff 08/24/2024:
Atherosclerotic changes of abdominal aorta without aneurysmal dilatation or dissection.
Severe stenosis, near occlusion at the origin of the left external iliac artery.
Left lower extremity: Mild stenosis of the proximal left superficial femoral artery. Occlusion of the left popliteal artery with occluded stent and irregular appearance of the stent which may be 'fracture' above the knee, atypical appearance.
Reconstitution of arterial blood flow below the left knee predominantly via the posterior tibial artery to the left ankle. Anterior tibial artery likely occluded in the distal calf and left peroneal artery occluded in the proximal calf.
Right lower extremity: Likely significant right popliteal artery stenosis. Likely mild right common femoral artery and proximal right superficial femoral artery stenoses.
Irregular patchy opacity in the lower lobe of the right lung which could represent pneumonitis. Is there a history of aspiration?
Bilateral renal cysts.
Small simple left lobe hepatic cyst.
Sigmoid diverticulosis.
Mildly enlarged prostate gland.
Total time spent today was 56 minutes for this encounter. Time includes reviewing laboratory test/imaging results, reviewing pertinent medical records, obtaining and reviewing medical history, performing an appropriate exam, ordering medications,
tests and procedures. Time also includes documentation of this encounter, coordinating patient care and communicating with other healthcare professionals. Total time does not include separately billed tests performed on this date of service.
Subjective Dataa
Subjective Data
Date of Service:
Date of Service: August 26, 2024
Chief Complaint: Deck Officer Follow Up
Subjective:
Pt seen and evaluated this AM. He is doing well. Afebrile overnight. Likely going home today. HR 61 and BP 128/70 and saturating 96% on RA. No chest pain, KISER, abdominal pain, nausea, fevers or chills
Review of Systems
General: Other (Negative unless mentioned above)
Objective Data
Data Reviewed
Vital Signs / I&O / Oxygen:
Vital Signs
Temp Pulse Resp BP Pulse Ox
97.7 F 59 19 100/52 95
08/26/24 08:03 08/26/24 08:14 08/26/24 08:14 08/26/24 04:00 08/26/24 08:14
Intake and Output
08/25/24 08/26/24 08/27/24
06:59 06:59 06:59
Intake Total 1500 / 1625 2772 / 2772
Output Total 1660 / 1760 2565 / 2565
Balance -160 / -135 207 / 207
SaO2 95
Nasal Cannula flow liters per 2
minute
Physical Exam
General: Respiratory Distress (negative), Comfortable, Chills (negative) and Sweats (negative)
HEENT: Normocephalic and Anicteric
Cardiovascular: S1-S2 and Peripheral Edema (negative)
Respiratory: Clear, Wheeze (negative), Crackles (negative), Rhonchi (negative) and Non-Labored Respirations
GI: Soft, Non Distended, Non Tender and Normal Bowel Sounds
Neurology: AO x 3 and Tremors (negative)
Skin: Warm, Dry, Cyanosis (negative) and Jaundice (negative)
Labs/Micro/Reports
Lab Data
08/26/24 04:57
08/26/24 04:57
Laboratory Results
08/25/24 08/25/24 08/25/24
05:02 09:31 16:41
APTT 30.8 Cancelled 148.7 H
08/25/24 08/26/24 08/26/24
22:30 00:43 01:13
APTT Cancelled Cancelled 106.2 H
--- NOTE | 2024-08-26 08:30 | PTCARENOTE ---
IVF,Calderon Discontinued as ordered.Pt assisted to chair with 1 person minimal assist.
[2024-08-26] MEDS: PROTONIX 40 MG PO (08:33)
[2024-08-26] MEDS: FOLVITE 1 MG PO (08:33)
[2024-08-26] MEDS: PEPCID 40 MG PO (08:33)
[2024-08-26] MEDS: THIAMINE INJECTION 200 MG IV (08:33)
[2024-08-26] MEDS: NEURONTIN 600 MG PO (08:33)
[2024-08-26] MEDS: SYNTHROID 125 MCG PO (08:33)
[2024-08-26] MEDS: ELIQUIS 5 MG PO (09:47)
[2024-08-26] MEDS: ASPIR LOW (ENTERIC COATED) 81 MG PO (09:48)
--- NOTE | 2024-08-26 10:56 | PTCARENOTE ---
0950-Eliquis given.Heparin gtt discontinued.Pt ambulating to bathroom for hygiene.
--- NOTE | 2024-08-26 12:13 | CM ---
CM following re: discharge planning.
Discussed in Rounds, reviewed pt's chart, met with pt.
Per Vascular Surgery pt will be discharged home later today. Pt is aware, expressed his agreement with discharge and he stated his spouse is coming to transport home.
Pt reports he is independent with functional ability and does not need after care VN services.
D/C plan: home no needs. Spouse to transport.
--- NOTE | 2024-08-26 12:24 | W.PN.HOSP.TC ---
Addendum entered and electronically signed by Amado Claros MD 08/26/24 18:20:
[id number]
Original Note:
Today's Communication/Plan
-
PO Eliquis 5mg BID with antiplatelet Aspirin 81mg PO daily for one month, then at follow up vascular appointment will transition to either DAPT (81mg PO aspirin daily with Plavix 75mg PO daily) or compass protocol (Xarelto 2.5mg PO BID and Aspirin
81mg PO daily)
F/u pulm for copd
f/u vascular outpt
f/u pcp outpatient
Assessment / Plan
Assessment / Plan
AAOx3, NAD
No tachycardia
No dyspnea on room air
ABD flat, non-tender, non-distended
Right groin site CDI, no evidence of edema or hematoma
Left DP palpable, left PT by doppler, foot warm
# Acute left lower limb extremity ischemia status post angiogram/thrombectomy/lytic catheter placement
# History of left lower extremity PAD status post SFA stent x 2 thrombectomy
-#LLE agram, thrombectomy, lytic cath placement, POD#2 Balloon angioplasty and stenting of left popliteal artery (6 mm x 150 mm Viabahn stent graft). Balloon angioplasty of the below-knee popliteal artery stenosis (5 mm x 40 mm angioplasty
balloon). Diagnostic left lower extremity arteriogram.
-transition IV heparin to PO Eliquis 5mg BID with antiplatelet Aspirin 81mg PO daily for one month, then at follow up with vascular office appointment will transition to either DAPT (81mg PO aspirin daily with Plavix 75mg PO daily) or compass
protocol (Xarelto 2.5mg PO BID and Aspirin 81mg PO daily)
-Hold Plavix
-Vascular surgery following
# Right lower lobe pneumonia status post treatment
-No longer has pulmonary symptoms
-CT scan shows evidence of residual pneumonia
Essential hypertension
-Continue amlodipine
Hypothyroidism
-Continue levothyroxine
Hyperlipidemia
GERD
-Continue famotidine, Protonix
Chronic cough/COPD
-Continue inhalers
-f/u pulm outpt
Daily tobacco use
Alcohol use
Chronic neuropathy/pain
-Continue gabapentin
Full code
Regular diet
More than 30 minutes spent in discharge including
Final examination of the patient
Summarizing hospital stay
Instructions for continuing care to all relevant caregivers
Preparation of discharge records, prescriptions, and referral forms
Total time spent (35 in minutes):
Anticipated Discharge: Today
Subjective/Interval History
-
Date of Service: August 26, 2024
Tolerated procedure well
Objective Data
-
Labs:
Laboratory Results
08/25/24 08/26/24 08/26/24
22:30 00:43 01:13
WBC
Hgb
Hct
Plt Count
APTT Cancelled Cancelled 106.2 H
Sodium
Potassium
Chloride
Carbon Dioxide
BUN
Creatinine
Glucose
Calcium
Total Bilirubin
AST
ALT
Alkaline Phosphatase
08/26/24 08/26/24
04:57 08:00
WBC 12.3 H
Hgb 13.5
Hct 39.3
Plt Count 275
APTT Pending
Sodium 138
Potassium 4.0
Chloride 108 H
Carbon Dioxide 23
BUN 14
Creatinine 0.7
Glucose 127 H
Calcium 8.3 L
Total Bilirubin Pending
AST Pending
ALT Pending
Alkaline Phosphatase Pending
Vital Signs:
Vital Signs
Temp Pulse Resp BP Pulse Ox
97.8 F 66 23 129/69 96
08/26/24 11:57 08/26/24 10:15 08/26/24 09:45 08/26/24 09:00 08/26/24 08:15
I&O
08/25/24 08/26/24 08/27/24
06:59 06:59 06:59
Intake Total 1500 / 1625 2772 / 2857 655 / 655
Output Total 1660 / 1760 2565 / 2715 300 / 300
Balance -160 / -135 207 / 142 355 / 355
Review of Systems
-
History Source: Patient
All other systems: Not reviewed unless documented
Physical Exam
-
General: Well Developed and No Apparent Distress
HEENT: Normocephalic, Atraumatic, Moist Mucous Membranes and Oxygen
Respiratory: Clear to Auscultation
Cardiac: Regular Rhythm, S1/S2 and Other (Right groin site CDI, no evidence of edema or hematoma Left DP palpable, left PT by doppler, foot warm ); Negative Murmur, Rub or Gallop
GI: Soft, Nontender, Nondistended and Normal Bowel Sounds; Negative Organomegaly
Rectal: Deferred by Provider
Musculoskeletal: No Clubbing, No Cyanosis and No Edema
Skin: Warm; Negative Rash
Neuro: Awake, Alert, Oriented, AO x 3 and Nonfocal/Grossly Intact
Psych: Calm
Data Reviewed
-
CT Scan: Image personally visualized and interpreted and Report Reviewed by me
Labs: Labs Reviewed by me
--- NOTE | 2024-08-26 12:27 | PTCARENOTE ---
Pt assessed.Voided in bathroom.+BM.Ambulated in hallway without difficulty.
--- NOTE | 2024-08-26 12:30 | W.DS.TRANS ---
DC Summary - Electronic Tech
-
Discharge Instructions:
Discharge Diagnosis/Procedures LLE agram, thrombectomy, lytic cath placement,
Balloon angioplasty and stenting of left
popliteal artery (6 mm x 150 mm Viabahn stent
graft). Balloon angioplasty of the below-knee
popliteal artery stenosis (5 mm x 40 mm
angioplasty balloon). Diagnostic left lower
extremity arteriogram.
Diet As tolerated,Low Cholesterol,Low Fat
Activity No strenuous activity
Driving Restrictions No driving for 24 hours
Bathing Restrictions OK to Shower
Others Tests Ultrasound: 10/09 @ 8am
Instructions:
Stand-Alone Forms: DC Instr - Vascular OR
Changes to Home Medications: Yes
Discharge Medications:
DC Medications w/original date entered in [employer]
amlodipine 5 mg tablet (Norvasc) 5 mg PO QPM Blood Pressure ##0 08/10/24
clopidogrel 75 mg tablet 75 mg PO QPM Blood Clot Prevention/Tx 08/10/24
pantoprazole 40 mg tablet,delayed release 40 mg PO DAILY Gastrointestinal Issue 08/10/24
Symbicort 80 mcg-4.5 mcg/actuation HFA aerosol inhaler (budesonide-formoterol) 2 puff inhalation R BID 30 days #10.2 grams 08/13/24
codeine 10 mg-guaifenesin 100 mg/5 mL oral liquid 10 ml PO Q4HPRN PRN COUGH 08/24/24
gabapentin 300 mg capsule 600 mg PO DAILY Pain 08/24/24
levothyroxine 125 mcg tablet (Synthroid) 125 mcg PO DAILY Thyroid 08/24/24
tiotropium bromide 2.5 mcg/actuation mist for inhalation (Spiriva Respimat) 2 inh inhalation R DAILY Lung/Breathing Issues 08/24/24
apixaban 5 mg tablet (Eliquis) 5 mg PO BID 6 weeks #84 tabs 08/26/24
aspirin 81 mg tablet,delayed release 81 mg PO DAILY #90 tabs 08/26/24
atorvastatin 10 mg tablet 10 mg PO QPM #90 tabs 08/26/24
Home Medication Changes
apixaban 5 mg tablet (Eliquis) 5 mg PO BID 6 weeks #84 tabs 08/26/24
aspirin 81 mg tablet,delayed release 81 mg PO DAILY #90 tabs 08/26/24
atorvastatin 10 mg tablet 10 mg PO QPM #90 tabs 08/26/24
Pending Results: No
[2024-08-26 12:39] LABS: ALT (SGPT) 23 U/L (0-50); AST (SGOT) 21 U/L (17-59); Albumin 3.1 g/dl (3.5-5.0); Alkaline Phosphatase 45 U/L (38-126); Direct Bilirubin 0.1 mg/dl (0.0-0.4); Total Bilirubin 0.3 mg/dl (0.2-1.3); Total Protein 5.5 g/dl (6.3-8.2)
--- NOTE | 2024-08-26 13:57 | W.PN.UPDATE ---
Update Note
Progress Note Update
Called patient and updated him on new ultrasound and vascular follow up appointment times.
== END 2024-08-26 13:30 | disposition home or self-care (01) | DRG 271 ==
LOC: ICU 17:32
PROVIDERS: Hospitalist; Nurse Practitioner; Nurse Practitioner Family; Surgery Vascular Surgery; ADMITTING PHYSICIAN Surgery; ATTENDING PHYSICIAN Internal Medicine; EMERGENCY PHYSICIAN Emergency Medicine; FAMILY PHYSICIAN Internal Medicine; OTHER PHYSICIAN Internal Medicine Critical Care Medicine
PROC: 3E05317 Introduction of Other Thrombolytic into Peripheral Artery, Percutaneous Approach (ICD-10-PCS; 2024-08-24)
PROC: 04CL3ZZ Extirpation of Matter from Left Femoral Artery, Percutaneous Approach (ICD-10-PCS; 2024-08-24)
PROC: 047N3DZ Dilation of Left Popliteal Artery with Intraluminal Device, Percutaneous Approach (ICD-10-PCS; 2024-08-25)
DX: I74.3 Embolism and thrombosis of arteries of the lower extremities (principal); T82.518A Breakdown (mechanical) of other cardiac and vascular devices and implants, initial encounter; I70.222 Atherosclerosis of native arteries of extremities with rest pain, left leg; I10 Essential (primary) hypertension; J44.9 Chronic obstructive pulmonary disease, unspecified; E03.9 Hypothyroidism, unspecified; E78.5 Hyperlipidemia, unspecified; K21.9 Gastro-esophageal reflux disease without esophagitis; G62.9 Polyneuropathy, unspecified; F17.210 Nicotine dependence, cigarettes, uncomplicated; F17.290 Nicotine dependence, other tobacco product, uncomplicated; Y71.2 Prosthetic and other implants, materials and accessory cardiovascular devices associated with adverse incidents; Y83.1 Surgical operation with implant of artificial internal device as the cause of abnormal reaction of the patient, or of later complication, without mention of misadventure at the time of the procedure; Z79.02 Long term (current) use of antithrombotics/antiplatelets; Z79.51 Long term (current) use of inhaled steroids; Z79.890 Hormone replacement therapy
CPT/HCPCS: 36247; 37184; 37214; 37226; 75635; 75710; 80048; 80053; 82077; 82248; 83735; 84100; 85025; 85027; 85384; 85610; 85730; 93005; 94640; 96374; 99291; 99406; C1725; C1751; C1760; C1769; C1874; C1887; C1894; J2997; Q9967

== ENCOUNTER → 2024-09-23 14:22 | Outpatient (REF) | payer BC, SELFPAY | LOC: RAD 14:22 | PROVIDERS: ATTENDING PHYSICIAN Nurse Practitioner Family; FAMILY PHYSICIAN Internal Medicine | DX: Z87.01 Personal history of pneumonia (recurrent) (principal) | CPT/HCPCS: 71046 ==

== ENCOUNTER → 2024-09-29 07:55 | Outpatient (REF) | payer BC, SELFPAY | LOC: RAD 07:55 | PROVIDERS: ATTENDING PHYSICIAN Surgery Vascular Surgery; FAMILY PHYSICIAN Internal Medicine | DX: I73.9 Peripheral vascular disease, unspecified (principal) | CPT/HCPCS: 93922; 93925 ==

== ENCOUNTER → 2024-12-16 11:53 | Outpatient (REF) | payer BC, SELFPAY | LOC: DHSLP 11:53 | PROVIDERS: ATTENDING PHYSICIAN Otolaryngology | DX: G47.33 Obstructive sleep apnea (adult) (pediatric) (principal) | CPT/HCPCS: 95800 ==

== ENCOUNTER → 2024-12-31 09:06 | Outpatient (REF) | payer BC, SELFPAY | LOC: DHVS 09:06 | PROVIDERS: ATTENDING PHYSICIAN Physician Assistant; FAMILY PHYSICIAN Internal Medicine | DX: I73.9 Peripheral vascular disease, unspecified (principal) | CPT/HCPCS: 93922; 93925 ==

== ENCOUNTER → 2025-03-30 13:36 | Outpatient (REF) | payer BC, SELFPAY ==
--- NOTE | 2025-03-30 15:11 | CARDSERVLU ---
Echocardiogram with Lumason completed after protocol screening completed. Allergies verified.
Patent IV site: __rt hand__
IV site flushed with 0.9% NaCl pre and post administration.
Diluted bolus method utilized to enhance visualization of ventricular armenta.
Total volume given: ___2.5_ mL
Patient tolerated all procedures well without complications.
== END ==
LOC: RCS 13:36
PROVIDERS: ATTENDING PHYSICIAN Internal Medicine Cardiovascular Disease; FAMILY PHYSICIAN Internal Medicine
DX: R07.9 Chest pain, unspecified (principal); R68.89 Other general symptoms and signs; I10 Essential (primary) hypertension
CPT/HCPCS: 93306; Q9950

== ENCOUNTER → 2025-04-01 10:36 | Outpatient (REF) | payer BC, SELFPAY | LOC: RCS 10:36 | PROVIDERS: ATTENDING PHYSICIAN Internal Medicine Cardiovascular Disease; FAMILY PHYSICIAN Internal Medicine | DX: R07.9 Chest pain, unspecified (principal); R68.89 Other general symptoms and signs; I10 Essential (primary) hypertension | CPT/HCPCS: 93017 ==

== ENCOUNTER 2025-05-11 06:32 | Day surgery (SDC) | payer BC, MEDICARE, SELFPAY | END 2025-05-11 12:05 | disposition home or self-care (01) | LOC: GI 06:32 | PROVIDERS: ATTENDING PHYSICIAN Internal Medicine Gastroenterology; FAMILY PHYSICIAN Internal Medicine | DX: R12 Heartburn (principal); K22.89 Other specified disease of esophagus; K20.90 Esophagitis, unspecified without bleeding; K31.89 Other diseases of stomach and duodenum; K29.50 Unspecified chronic gastritis without bleeding; K31.A19 Gastric intestinal metaplasia without dysplasia, unspecified site | CPT/HCPCS: 43239; 88305; 88342 ==

== ENCOUNTER → 2025-06-15 09:49 | Outpatient (REF) | payer MEDICARE, BC, SELFPAY | LOC: RAD 09:49 | PROVIDERS: ATTENDING PHYSICIAN Internal Medicine | DX: M19.041 Primary osteoarthritis, right hand (principal); M19.042 Primary osteoarthritis, left hand; M25.50 Pain in unspecified joint | CPT/HCPCS: 73130 ==

== ENCOUNTER → 2025-07-08 07:34 | Outpatient (REF) | payer MEDICARE, BC, SELFPAY | LOC: RAD 07:34 | PROVIDERS: ATTENDING PHYSICIAN Surgery Vascular Surgery; FAMILY PHYSICIAN Internal Medicine | DX: I73.9 Peripheral vascular disease, unspecified (principal) | CPT/HCPCS: 93922; 93925 ==

== ENCOUNTER → 2025-07-27 13:19 | Outpatient (REF) | payer MEDICARE, SELFPAY | LOC: RAD 13:19 | PROVIDERS: ATTENDING PHYSICIAN Family Medicine | DX: R05.1 Acute cough (principal); J44.1 Chronic obstructive pulmonary disease with (acute) exacerbation | CPT/HCPCS: 71046 ==